=== PATIENT | male | born 1935 | race Two or more races ===

== ENCOUNTER 2021-08-06 09:53 | Inpatient (IN) | payer MEDICARE, OTHER ==
[2021-08-06] VITALS (8 sets, daily range): BP systolic 127–156; BP diastolic 47–65
[~2021-08-06] VITALS: Ht 182.9 cm; Wt 119.4 kg
[2021-08-06 11:03] LABS: Albumin 3.3 g/dL (3.4-5.0); Calcium 8.5 mg/dL (8.5-10.1); Magnesium 2.3 mg/dL (1.6-2.6); Potassium 3.6 mmol/L (3.5-5.1)
[2021-08-06 11:06] LABS: Basophils # (auto) 0 10 ^3/uL (0-0.2); Basophils % (auto) 0.5 % (0.0-2.0); Eosinophils # (auto) 0.1 10 ^3/uL (0-0.8); Eosinophils % (auto) 1.5 % (0.0-7.0); Hematocrit 36.2 % (41.0-53.0); Hemoglobin 11.7 g/dL (13.5-17.5); Lymphocytes # (auto) 1.4 10 ^3/uL (0.4-5.4); Lymphocytes % (auto) 20.4 % (10.0-50.0); Mean Corpuscular Hemoglobin 30.1 pg (28.0-32.0); Mean Corpuscular Hgb Conc. 32.5 g/dL (32.0-36.0); Mean Corpuscular Volume 92.7 fL (80.0-100.0); Monocytes # (auto) 0.5 10 ^3/uL (0-1.3); Monocytes % (auto) 7.1 % (0.0-12.0); Neutrophils % (auto) 70.5 % (37.0-80.0); Nucleated Red Blood Cells % 0.1 %; Red Cell Distribution Width 15.9 % (11.8-14.3); White Blood Cell 7.1 10^3/uL (4.4-10.8)
[2021-08-06 11:08] LABS: Urine Bacteria NONE SEEN /hpf (None Seen); Urine Blood Negative /uL (Negative); Urine Specific Gravity 1.021 (1.001-1.035); Urine WBC 1 /hpf (0 - 3)
[2021-08-06 11:10] LABS: BUN/Creatinine Ratio 7.6
[2021-08-06] MEDS ORDERED: MECLIZINE HCL 25 MG TAB PO ONE (12:30)
[2021-08-06] MEDS ORDERED: SPIRONOLACTONE 25 MG TAB PO ONE (12:30)
[2021-08-06] MEDS ORDERED: hydrALAZINE HCL 20 MG/ML VL IV ONE (12:30)
[2021-08-06] MEDS ORDERED: FUROSEMIDE 40 MG/4 ML VIAL IV ONE (12:30)
[2021-08-06] MEDS ORDERED: LABETALOL HCL 5 MG/ML 4ML SYRINGE IV ONE ×2 (14:16→14:30)
[2021-08-06] MEDS ORDERED: NITROGLYCERIN 0.4 MG SL TAB SL PRN (17:00)
[2021-08-06] MEDS ORDERED: MORPHINE SULFATE INJECTION 2 MG/ML SYRG IV PRN (17:00)
[2021-08-06] MEDS ORDERED: DOCUSATE SOD 100 MG CAP PO PRN (17:45)
[2021-08-06] MEDS ORDERED: ONDANSETRON HCL 4 MG/2 ML VIAL IV PRN (17:45)
[2021-08-06] MEDS ORDERED: ACETAMINOPHEN 325 MG TAB PO PRN (17:45)
[2021-08-06] MEDS ORDERED: THIAMINE HCL 100 MG TAB PO ONE (18:30)
[2021-08-06] MEDS ORDERED: MULTIPLE VITAMIN TAB PO ONE (18:30)
[2021-08-06] MEDS ORDERED: hydrALAZINE HCL 25 MG TAB PO PRN (18:30)
[2021-08-06] MEDS ORDERED: FOLIC ACID 1 MG TAB PO ONE (18:30)
[2021-08-06 18:52] LABS: Alcohol, Urine < 3.0 mg/dL (0-10); Amphetamine Screen, Urine NEGATIVE (NEGATIVE); Barbiturate Scree,Urine NEGATIVE (NEGATIVE); Benzodiazephine Screen, Urine NEGATIVE (NEGATIVE); Cocaine Screen, Urine NEGATIVE (NEGATIVE); Opiate Scree,Urine NEGATIVE (NEGATIVE); Phencyclidine Screen, Urine NEGATIVE (NEGATIVE)
[2021-08-06 18:57] LABS: Cannabinoid Screen, Urine NEGATIVE (NEGATIVE)
[2021-08-06] MEDS: amLODIPine BESYLATE 5 MG TAB PO SCH (19:30)
[2021-08-06] MEDS: ENOXAPARIN SOD 80 MG/0.8ML SYRINGE SC SCH (23:07)
[2021-08-07] VITALS (85 sets, daily range): BP systolic 87–161; BP diastolic 21–129
[2021-08-07 04:50] LABS: Basophils # (auto) 0 10 ^3/uL (0-0.2); Basophils % (auto) 0.6 % (0.0-2.0); Eosinophils # (auto) 0.1 10 ^3/uL (0-0.8); Eosinophils % (auto) 1.1 % (0.0-7.0); Hematocrit 33.5 % (41.0-53.0); Hemoglobin 11.1 g/dL (13.5-17.5); Lymphocytes # (auto) 1.4 10 ^3/uL (0.4-5.4); Lymphocytes % (auto) 20.2 % (10.0-50.0); Mean Corpuscular Hemoglobin 30.6 pg (28.0-32.0); Mean Corpuscular Hgb Conc. 33.3 g/dL (32.0-36.0); Mean Corpuscular Volume 91.7 fL (80.0-100.0); Monocytes # (auto) 0.6 10 ^3/uL (0-1.3); Monocytes % (auto) 8.8 % (0.0-12.0); Neutrophils # (auto) 4.7 10 ^3/uL (1.6-8.6); Neutrophils % (auto) 69.3 % (37.0-80.0); Nucleated Red Blood Cells % 0.1 %; Red Blood Cells 3.65 10^6/uL (4.5-5.90); Red Cell Distribution Width 16.1 % (11.8-14.3); White Blood Cell 6.8 10^3/uL (4.4-10.8)
[2021-08-07 04:59] LABS: Potassium 3.1 mmol/L (3.5-5.1)
[2021-08-07 05:04] LABS: BUN/Creatinine Ratio 11.3; Calcium 8.6 mg/dL (8.5-10.1)
[2021-08-07 05:07] LABS: Bilirubin, Total 1.1 mg/dL (0.2-1.0); Total Protein 6.2 g/dL (6.4-8.2)
[2021-08-07] MEDS: FUROSEMIDE 40 MG/4 ML VIAL IV SCH ×2 (05:31→18:08)
[2021-08-07] MEDS: FOLIC ACID 1 MG TAB PO SCH (09:59)
[2021-08-07] MEDS: THIAMINE HCL 100 MG TAB PO SCH (10:00)
[2021-08-07] MEDS: MULTIPLE VITAMIN TAB PO SCH (10:00)
[2021-08-07] MEDS: amLODIPine BESYLATE 5 MG TAB PO SCH (10:03)
[2021-08-07] MEDS: ENOXAPARIN SOD 80 MG/0.8ML SYRINGE SC SCH (10:03)
[2021-08-07] MEDS: POTASSIUM CHL 10MEQ/50ML 50 ML IV SCH ×4 (12:14→16:12)
[2021-08-07] MEDS ORDERED: HCTZ 25 MG TAB PO ONE (13:30)
[2021-08-07] MEDS: hydrALAZINE HCL 20 MG/ML VL IV PRN (15:39)
[2021-08-08] VITALS (58 sets, daily range): BP systolic 113–168; BP diastolic 5–78
[2021-08-08 04:44] LABS: Basophils # (auto) 0 10 ^3/uL (0-0.2); Basophils % (auto) 0.5 % (0.0-2.0); Eosinophils # (auto) 0.2 10 ^3/uL (0-0.8); Eosinophils % (auto) 2.3 % (0.0-7.0); Hematocrit 37.3 % (41.0-53.0); Hemoglobin 12.3 g/dL (13.5-17.5); Lymphocytes # (auto) 1.4 10 ^3/uL (0.4-5.4); Lymphocytes % (auto) 18.6 % (10.0-50.0); Mean Corpuscular Hemoglobin 30.4 pg (28.0-32.0); Mean Corpuscular Hgb Conc. 32.9 g/dL (32.0-36.0); Mean Corpuscular Volume 92.3 fL (80.0-100.0); Monocytes # (auto) 0.6 10 ^3/uL (0-1.3); Monocytes % (auto) 8.6 % (0.0-12.0); Neutrophils # (auto) 5.2 10 ^3/uL (1.6-8.6); Nucleated Red Blood Cells % 0.1 %; Red Blood Cells 4.05 10^6/uL (4.5-5.90); Red Cell Distribution Width 16.3 % (11.8-14.3); White Blood Cell 7.4 10^3/uL (4.4-10.8)
[2021-08-08 05:08] LABS: BUN/Creatinine Ratio 11.7; Calcium 8.8 mg/dL (8.5-10.1); Potassium 3.3 mmol/L (3.5-5.1)
[2021-08-08] MEDS: FUROSEMIDE 40 MG/4 ML VIAL IV SCH ×2 (06:28→17:31)
[2021-08-08] MEDS ORDERED: POTASSIUM EFFERVESENT TAB 25 MEQ PO ONE (09:30)
[2021-08-08] MEDS: FOLIC ACID 1 MG TAB PO SCH (09:55)
[2021-08-08] MEDS: THIAMINE HCL 100 MG TAB PO SCH (09:55)
[2021-08-08] MEDS: HCTZ 25 MG TAB PO SCH (09:56)
[2021-08-08] MEDS: MULTIPLE VITAMIN TAB PO SCH (09:59)
[2021-08-08] MEDS: ENOXAPARIN SOD 40 MG/0.4 ML SYRINGE SC SCH (10:00)
[2021-08-08] MEDS: amLODIPine BESYLATE 5 MG TAB PO SCH (10:00)
[2021-08-08] MEDS: hydrALAZINE HCL 20 MG/ML VL IV PRN (14:05)
[2021-08-08] MEDS: hydrALAZINE HCL 10 MG TAB PO SCH (21:20)
[2021-08-09 05:00] VITALS: BP 133/70
[2021-08-09] MEDS: FUROSEMIDE 40 MG/4 ML VIAL IV SCH ×2 (06:02→18:45)
[2021-08-09] MEDS: hydrALAZINE HCL 10 MG TAB PO SCH ×3 (06:03→21:35)
[2021-08-09 07:05] LABS: Basophils # (auto) 0 10 ^3/uL (0-0.2); Basophils % (auto) 0.4 % (0.0-2.0); Eosinophils # (auto) 0.1 10 ^3/uL (0-0.8); Eosinophils % (auto) 1.5 % (0.0-7.0); Hemoglobin 12.1 g/dL (13.5-17.5); Lymphocytes # (auto) 1.3 10 ^3/uL (0.4-5.4); Lymphocytes % (auto) 18.2 % (10.0-50.0); Mean Corpuscular Hemoglobin 30.3 pg (28.0-32.0); Mean Corpuscular Hgb Conc. 33.4 g/dL (32.0-36.0); Mean Corpuscular Volume 90.5 fL (80.0-100.0); Monocytes # (auto) 0.8 10 ^3/uL (0-1.3); Monocytes % (auto) 11.1 % (0.0-12.0); Neutrophils # (auto) 4.9 10 ^3/uL (1.6-8.6); Neutrophils % (auto) 68.8 % (37.0-80.0); Red Blood Cells 3.98 10^6/uL (4.5-5.90); Red Cell Distribution Width 16.3 % (11.8-14.3); White Blood Cell 7.2 10^3/uL (4.4-10.8)
[2021-08-09 07:10] LABS: Calcium 9.1 mg/dL (8.5-10.1); Potassium 3.4 mmol/L (3.5-5.1)
[2021-08-09 07:13] LABS: BUN/Creatinine Ratio 11.5
[2021-08-09] MEDS: FOLIC ACID 1 MG TAB PO SCH (08:55)
[2021-08-09] MEDS: HCTZ 25 MG TAB PO SCH (08:56)
[2021-08-09] MEDS: MULTIPLE VITAMIN TAB PO SCH (08:56)
[2021-08-09] MEDS: THIAMINE HCL 100 MG TAB PO SCH (08:56)
[2021-08-09] MEDS: ENOXAPARIN SOD 40 MG/0.4 ML SYRINGE SC SCH (08:57)
[2021-08-09] MEDS: amLODIPine BESYLATE 5 MG TAB PO SCH (08:57)
[2021-08-09 09:00] VITALS: BP 141/51
[2021-08-09 13:00] VITALS: BP 120/53
[2021-08-09] MEDS ORDERED: METO25TA93 PO (13:05)
[2021-08-09] MEDS ORDERED: APIX5TAB PO (13:05)
[2021-08-09] MEDS ORDERED: FURO20TA3 PO (13:05)
[2021-08-09] MEDS ORDERED: TAMS0.4C36 PO (13:05)
[2021-08-09] MEDS ORDERED: ENAL2.5T7 PO (13:05)
[2021-08-09] MEDS ORDERED: AML5T PO (13:09)
[2021-08-09 16:56] VITALS: BP 148/67
[2021-08-09 22:00] VITALS: BP 133/54
[2021-08-10 05:00] VITALS: BP 105/60
[2021-08-10] MEDS: FUROSEMIDE 40 MG/4 ML VIAL IV SCH (05:34)
[2021-08-10] MEDS: hydrALAZINE HCL 10 MG TAB PO SCH (05:35)
[2021-08-10 09:00] VITALS: BP 131/45
[2021-08-10] MEDS: MULTIPLE VITAMIN TAB PO SCH (10:05)
[2021-08-10] MEDS: THIAMINE HCL 100 MG TAB PO SCH (10:05)
[2021-08-10] MEDS: FOLIC ACID 1 MG TAB PO SCH (10:05)
[2021-08-10] MEDS: ENOXAPARIN SOD 40 MG/0.4 ML SYRINGE SC SCH (10:06)
[2021-08-10] MEDS: amLODIPine BESYLATE 5 MG TAB PO SCH (10:08)
[2021-08-10] MEDS: HCTZ 25 MG TAB PO SCH (10:08)
[2021-08-10 10:30] VITALS: BP_SYST 133
[2021-08-10] MEDS ORDERED: hydrALAZINE HCL 10 MG TAB PO SCH (14:00)
== END 2021-08-10 13:20 | disposition home or self-care (01) | DRG 304 ==
LOC: ER 09:53 → TELE 16:53 → ICU WEST 21:54 → TELE-WESTW 08-08 16:48
PROVIDERS: ADMIT Internal Medicine; ATTEND Internal Medicine Pulmonary Disease
PROC: 05HB33Z Insertion of Infusion Device into Right Basilic Vein, Percutaneous Approach (ICD-10-PCS; principal; 2021-08-08)
PROC: B54MZZA Ultrasonography of Right Upper Extremity Veins, Guidance (ICD-10-PCS; 2021-08-08)
DX: I16.1 Hypertensive emergency (principal); I50.33 Acute on chronic diastolic (congestive) heart failure; I48.20 Chronic atrial fibrillation, unspecified; E44.1 Mild protein-calorie malnutrition; R09.89 Other specified symptoms and signs involving the circulatory and respiratory systems; D63.8 Anemia in other chronic diseases classified elsewhere; E87.6 Hypokalemia; I27.20 Pulmonary hypertension, unspecified; I11.0 Hypertensive heart disease with heart failure; I49.5 Sick sinus syndrome; Z20.822 Contact with and (suspected) exposure to COVID-19; Z85.46 Personal history of malignant neoplasm of prostate; Z79.01 Long term (current) use of anticoagulants; Z86.73 Personal history of transient ischemic attack (TIA), and cerebral infarction without residual deficits; Z68.35 Body mass index [BMI] 35.0-35.9, adult
CPT/HCPCS: 36415; 70450; 71045; 72192; 80048; 80053; 80307; 81001; 82962; 83735; 83880; 84132; 84443; 84484; 85025; 87081; 93005; 93306; 96365; 96375; 97163; 99291; G0378; J3490

== ENCOUNTER 2021-08-18 01:28 | Inpatient (IN) | payer MEDICARE ==
[~2021-08-18] VITALS: Ht 193 cm; Wt 111.8 kg
[~2021-08-18 01:28] MED LIST: AML5T PO; APIX5TAB PO; ENAL2.5T7 PO; FURO20TA3 PO; METO25TA93 PO; TAMS0.4C36 PO
[2021-08-18 02:37] LABS: Basophils # (auto) 0 10 ^3/uL (0-0.2); Basophils % (auto) 0.4 % (0.0-2.0); Eosinophils # (auto) 0 10 ^3/uL (0-0.8); Eosinophils % (auto) 0.3 % (0.0-7.0); Hematocrit 37.2 % (41.0-53.0); Hemoglobin 12.2 g/dL (13.5-17.5); Lymphocytes # (auto) 0.8 10 ^3/uL (0.4-5.4); Mean Corpuscular Hemoglobin 29.7 pg (28.0-32.0); Mean Corpuscular Hgb Conc. 32.9 g/dL (32.0-36.0); Mean Corpuscular Volume 90.5 fL (80.0-100.0); Monocytes # (auto) 0.3 10 ^3/uL (0-1.3); Monocytes % (auto) 8.8 % (0.0-12.0); Neutrophils # (auto) 2.5 10 ^3/uL (1.6-8.6); Neutrophils % (auto) 69.5 % (37.0-80.0); Red Blood Cells 4.12 10^6/uL (4.5-5.90); Red Cell Distribution Width 15.7 % (11.8-14.3); White Blood Cell 3.6 10^3/uL (4.4-10.8)
[2021-08-18 02:53] LABS: Albumin 2.9 g/dL (3.4-5.0); Calcium 8.2 mg/dL (8.5-10.1); Magnesium 2.3 mg/dL (1.6-2.6); Potassium 3.7 mmol/L (3.5-5.1)
[2021-08-18 02:55] LABS: BUN/Creatinine Ratio 12.8
[2021-08-18 02:59] LABS: INR 1.22 (0.9-1.15); Partial Thromboplastin Time 39.7 sec (23.6-33.0)
[2021-08-18 03:00] LABS: Bilirubin, Total 0.7 mg/dL (0.2-1.0); Total Protein 6.5 g/dL (6.4-8.2)
[2021-08-18] MEDS ORDERED: ACETAMINOPHEN 325 MG TAB PO PRN (09:15)
[2021-08-18] MEDS ORDERED: NITROGLYCERIN 0.4 MG SL TAB SL PRN (09:15)
[2021-08-18] MEDS ORDERED: TEMAZEPAM 15 MG CAP PO PRN (09:15)
[2021-08-18] MEDS ORDERED: MORPHINE SULFATE INJECTION 2 MG/ML SYRG IV PRN (09:15)
[2021-08-18] MEDS ORDERED: METOCLOPRAMIDE HCL 5MG/ml INJ 2ml VIAL IV PRN ×2 (09:15→09:30)
[2021-08-18] MEDS ORDERED: ALUM & MAG HYDROX-SIMETH LIQ(MAALOX) 30 ML PO PRN (09:15)
[2021-08-18] MEDS ORDERED: FUROSEMIDE 20 MG/2 ML VIAL IV ONE (09:30)
[2021-08-18] MEDS: DOXYCYCLINE 100 MG TAB/CAP PO SCH ×2 (09:42→21:31)
[2021-08-18] MEDS ORDERED: GLUCAGON HYDROCHLORIDE (RDNA) 1 MG VIAL IV ONE (12:00)
[2021-08-18] MEDS ORDERED: ISOSORBIDE MONONITRATE ER 60 MG TAB PO ONE (12:00)
[2021-08-18] MEDS ORDERED: hydrALAZINE HCL 20 MG/ML VL IV PRN (12:00)
[2021-08-18 13:45] VITALS: BP 134/65
[2021-08-18 13:59] VITALS: BP 104/68
[2021-08-18] MEDS: SODIUM CHLOR 0.9% PF (SALINE LOCK) 10ML VIAL/SYR IV SCH ×2 (14:00→21:20)
[2021-08-18 14:21] VITALS: BP 104/68
[2021-08-18] MEDS: IPRATROPIUM BROM 0.5 MG/2.5ML INH SOL NEB SCH ×2 (14:22→22:20)
[2021-08-18] MEDS: ALBUTEROL SULF 2.5 MG/0.5ML(0.5%) NEB SOLN NEB SCH ×2 (14:22→22:20)
[2021-08-18 16:05] VITALS: BP 157/49
[2021-08-18 22:00] VITALS: BP 110/62
[2021-08-18] MEDS: HYDROcodone-ACET 5/325MG TAB PO PRN (22:11)
[2021-08-19 05:00] VITALS: BP 143/68
[2021-08-19] MEDS: SODIUM CHLOR 0.9% PF (SALINE LOCK) 10ML VIAL/SYR IV SCH ×3 (05:55→22:19)
[2021-08-19 06:39] LABS: Calcium 8.1 mg/dL (8.5-10.1); Potassium 3.7 mmol/L (3.5-5.1)
[2021-08-19 06:42] LABS: BUN/Creatinine Ratio 18.7; Magnesium 2.5 mg/dL (1.6-2.6)
[2021-08-19] MEDS: ALBUTEROL SULF 2.5 MG/0.5ML(0.5%) NEB SOLN NEB SCH ×3 (06:49→22:00)
[2021-08-19] MEDS: IPRATROPIUM BROM 0.5 MG/2.5ML INH SOL NEB SCH ×3 (06:49→22:00)
[2021-08-19 08:57] LABS: Urine Bacteria NONE SEEN /hpf (None Seen); Urine Blood Negative /uL (Negative); Urine Hyaline Cast MANY /lpf (0 - 2); Urine Mucus FEW (None Seen); Urine Specific Gravity 1.025 (1.001-1.035); Urine WBC 2 /hpf (0 - 3)
[2021-08-19 09:00] VITALS: BP 126/87
[2021-08-19 09:34] LABS: Amphetamine Screen, Urine NEGATIVE (NEGATIVE); Barbiturate Scree,Urine NEGATIVE (NEGATIVE); Benzodiazephine Screen, Urine NEGATIVE (NEGATIVE); Cannabinoid Screen, Urine NEGATIVE (NEGATIVE); Cocaine Screen, Urine NEGATIVE (NEGATIVE); Opiate Scree,Urine NEGATIVE (NEGATIVE); Phencyclidine Screen, Urine NEGATIVE (NEGATIVE)
[2021-08-19] MEDS ORDERED: FUROSEMIDE 20 MG/2 ML VIAL IV ONE (10:45)
[2021-08-19] MEDS: ISOSORBIDE MONONITRATE ER 60 MG TAB PO SCH (10:51)
[2021-08-19] MEDS: HYDROcodone-ACET 5/325MG TAB PO PRN ×2 (10:51→18:26)
[2021-08-19] MEDS: DOXYCYCLINE 100 MG TAB/CAP PO SCH ×2 (10:51→22:20)
[2021-08-19 13:00] VITALS: BP 134/63
[2021-08-19 16:58] VITALS: BP 127/56
[2021-08-19 22:00] VITALS: BP 124/73
[2021-08-20 05:00] VITALS: BP 130/57
[2021-08-20] MEDS: SODIUM CHLOR 0.9% PF (SALINE LOCK) 10ML VIAL/SYR IV SCH ×3 (05:43→22:29)
[2021-08-20] MEDS: IPRATROPIUM BROM 0.5 MG/2.5ML INH SOL NEB SCH ×3 (06:58→23:20)
[2021-08-20] MEDS: ALBUTEROL SULF 2.5 MG/0.5ML(0.5%) NEB SOLN NEB SCH ×3 (06:58→23:20)
[2021-08-20 08:39] VITALS: BP 135/58
[2021-08-20] MEDS: DOXYCYCLINE 100 MG TAB/CAP PO SCH ×2 (10:49→22:30)
[2021-08-20] MEDS: ISOSORBIDE MONONITRATE ER 60 MG TAB PO SCH (10:50)
[2021-08-20 12:38] VITALS: BP 125/69
[2021-08-20 16:38] VITALS: BP 128/72
[2021-08-20 22:00] VITALS: BP 140/68
[2021-08-21] VITALS (8 sets, daily range): BP systolic 123–149; BP diastolic 49–74
[2021-08-21] MEDS: SODIUM CHLOR 0.9% PF (SALINE LOCK) 10ML VIAL/SYR IV SCH ×3 (05:10→22:00)
[2021-08-21] MEDS: IPRATROPIUM BROM 0.5 MG/2.5ML INH SOL NEB SCH ×3 (06:40→21:26)
[2021-08-21] MEDS: ALBUTEROL SULF 2.5 MG/0.5ML(0.5%) NEB SOLN NEB SCH ×3 (06:40→21:26)
[2021-08-21] MEDS: DOXYCYCLINE 100 MG TAB/CAP PO SCH ×2 (10:00→22:31)
[2021-08-21] MEDS: ISOSORBIDE MONONITRATE ER 60 MG TAB PO SCH (10:00)
[2021-08-21] MEDS ORDERED: LIDOCAINE 2%HCL (LOCAL ANESTH.) INJ 10ml MDV ONE (12:17)
[2021-08-21] MEDS ORDERED: fentaNYL CITRATE 100 MCG/2 ML VL ONE (12:20)
[2021-08-21] MEDS ORDERED: VANCOMYCIN HCL 1000 MG VL ONE (12:20)
[2021-08-21] MEDS ORDERED: MIDAZOLAM HCL 2MG/2ML 2ml VIAL (1mg/ml) ONE (12:21)
[2021-08-21] MEDS ORDERED: VANCOMYCIN 1GM/250ML 250 ML IV ONE (12:21)
[2021-08-21] MEDS: HYDROmorphone HCL 2 MG/ML VL IV PRN (21:05)
[2021-08-22 05:00] VITALS: BP 137/68
[2021-08-22] MEDS: SODIUM CHLOR 0.9% PF (SALINE LOCK) 10ML VIAL/SYR IV SCH ×3 (06:00→21:43)
[2021-08-22] MEDS: ALBUTEROL SULF 2.5 MG/0.5ML(0.5%) NEB SOLN NEB SCH ×3 (06:08→22:43)
[2021-08-22] MEDS: IPRATROPIUM BROM 0.5 MG/2.5ML INH SOL NEB SCH ×3 (06:08→22:43)
[2021-08-22 08:42] VITALS: BP 148/77
[2021-08-22] MEDS ORDERED: FUROSEMIDE 20 MG/2 ML VIAL IV SCH (10:00)
[2021-08-22] MEDS: DOXYCYCLINE 100 MG TAB/CAP PO SCH ×2 (10:00→21:43)
[2021-08-22] MEDS: ISOSORBIDE MONONITRATE ER 60 MG TAB PO SCH (10:00)
[2021-08-22] MEDS ORDERED: ATOR-47 PO (10:15)
[2021-08-22 13:12] VITALS: BP 145/73
[2021-08-22 16:58] VITALS: BP 123/58
[2021-08-22 20:00] VITALS: BP 133/66
[2021-08-22] MEDS: FUROSEMIDE 20 MG/2 ML VIAL IV SCH (21:43)
[2021-08-22 22:00] VITALS: BP 133/66
[2021-08-23 05:00] VITALS: BP 144/63
[2021-08-23] MEDS: SODIUM CHLOR 0.9% PF (SALINE LOCK) 10ML VIAL/SYR IV SCH ×3 (06:02→22:30)
[2021-08-23] MEDS: HYDROmorphone HCL 2 MG/ML VL IV PRN (06:02)
[2021-08-23] MEDS: IPRATROPIUM BROM 0.5 MG/2.5ML INH SOL NEB SCH ×3 (06:03→23:00)
[2021-08-23] MEDS: ALBUTEROL SULF 2.5 MG/0.5ML(0.5%) NEB SOLN NEB SCH ×3 (06:03→23:00)
[2021-08-23 08:30] LABS: Basophils # (auto) 0 10 ^3/uL (0-0.2); Basophils % (auto) 0.2 % (0.0-2.0); Eosinophils # (auto) 0.1 10 ^3/uL (0-0.8); Eosinophils % (auto) 0.9 % (0.0-7.0); Hemoglobin 12.6 g/dL (13.5-17.5); Lymphocytes # (auto) 0.8 10 ^3/uL (0.4-5.4); Lymphocytes % (auto) 11.7 % (10.0-50.0); Mean Corpuscular Hemoglobin 29.8 pg (28.0-32.0); Mean Corpuscular Hgb Conc. 33.1 g/dL (32.0-36.0); Monocytes # (auto) 0.7 10 ^3/uL (0-1.3); Monocytes % (auto) 9.9 % (0.0-12.0); Neutrophils # (auto) 5.5 10 ^3/uL (1.6-8.6); Neutrophils % (auto) 77.3 % (37.0-80.0); Nucleated Red Blood Cells % 0.2 %; Red Blood Cells 4.23 10^6/uL (4.5-5.90); Red Cell Distribution Width 15.9 % (11.8-14.3); White Blood Cell 7.1 10^3/uL (4.4-10.8)
[2021-08-23 08:38] VITALS: BP 147/63
[2021-08-23 08:48] LABS: BUN/Creatinine Ratio 17.1; Calcium 8.8 mg/dL (8.5-10.1); Magnesium 2.5 mg/dL (1.6-2.6); Potassium 3.9 mmol/L (3.5-5.1)
[2021-08-23] MEDS: FUROSEMIDE 20 MG/2 ML VIAL IV SCH ×2 (10:00→22:31)
[2021-08-23] MEDS: ISOSORBIDE MONONITRATE ER 60 MG TAB PO SCH (10:00)
[2021-08-23] MEDS: DOXYCYCLINE 100 MG TAB/CAP PO SCH ×2 (10:00→22:31)
[2021-08-23 12:30] VITALS: BP 127/60
[2021-08-23 16:42] VITALS: BP 141/71
[2021-08-23 22:00] VITALS: BP 127/63
[2021-08-24 05:00] VITALS: BP 128/62
[2021-08-24] MEDS: SODIUM CHLOR 0.9% PF (SALINE LOCK) 10ML VIAL/SYR IV SCH ×3 (06:01→22:38)
[2021-08-24] MEDS: ALBUTEROL SULF 2.5 MG/0.5ML(0.5%) NEB SOLN NEB SCH ×3 (07:00→23:56)
[2021-08-24] MEDS: IPRATROPIUM BROM 0.5 MG/2.5ML INH SOL NEB SCH ×3 (07:00→23:56)
[2021-08-24] MEDS: HYDROcodone-ACET 5/325MG TAB PO PRN (08:19)
[2021-08-24 09:00] VITALS: BP 127/76
[2021-08-24] MEDS: FUROSEMIDE 20 MG/2 ML VIAL IV SCH ×2 (10:00→22:38)
[2021-08-24] MEDS: ISOSORBIDE MONONITRATE ER 60 MG TAB PO SCH (10:00)
[2021-08-24] MEDS: DOXYCYCLINE 100 MG TAB/CAP PO SCH ×2 (10:00→22:38)
[2021-08-24 11:00] VITALS: BP 127/76
[2021-08-24 13:00] VITALS: BP 141/84
[2021-08-24 17:00] VITALS: BP 146/73
[2021-08-24 21:30] VITALS: BP 147/80
[2021-08-25 05:00] VITALS: BP 145/79
[2021-08-25] MEDS: IPRATROPIUM BROM 0.5 MG/2.5ML INH SOL NEB SCH ×3 (07:24→13:40)
[2021-08-25] MEDS: ALBUTEROL SULF 2.5 MG/0.5ML(0.5%) NEB SOLN NEB SCH ×3 (07:24→13:40)
[2021-08-25 09:00] VITALS: BP 143/70
[2021-08-25] MEDS: DOXYCYCLINE 100 MG TAB/CAP PO SCH (09:23)
[2021-08-25] MEDS: FUROSEMIDE 20 MG/2 ML VIAL IV SCH (09:23)
[2021-08-25] MEDS: ISOSORBIDE MONONITRATE ER 60 MG TAB PO SCH (09:24)
[2021-08-25 13:00] VITALS: BP 131/67
[2021-08-25] MEDS: SODIUM CHLOR 0.9% PF (SALINE LOCK) 10ML VIAL/SYR IV SCH (14:00)
[2021-08-25 17:00] VITALS: BP 130/64
[2021-08-25 17:21] VITALS: BP 130/64
== END 2021-08-25 20:39 | DRG 242 ==
LOC: EDBD 01:28 → EDUNIT# 01:28 → ER 01:30 → TELE 09:10 → TELE-WESTW 13:49 → TELE-EAST 17:25
PROVIDERS: ADMIT Internal Medicine; ATTEND Internal Medicine
PROC: 0JH604Z Insertion of Pacemaker, Single Chamber into Chest Subcutaneous Tissue and Fascia, Open Approach (ICD-10-PCS; principal; 2021-08-21)
PROC: 02HK3JZ Insertion of Pacemaker Lead into Right Ventricle, Percutaneous Approach (ICD-10-PCS; 2021-08-21)
PROC: B5171ZZ Fluoroscopy of Left Subclavian Vein using Low Osmolar Contrast (ICD-10-PCS; 2021-08-21)
DX: I49.5 Sick sinus syndrome (principal); U07.1 COVID-19; G93.41 Metabolic encephalopathy; I50.33 Acute on chronic diastolic (congestive) heart failure; N17.9 Acute kidney failure, unspecified; E44.1 Mild protein-calorie malnutrition; D68.9 Coagulation defect, unspecified; I13.0 Hypertensive heart and chronic kidney disease with heart failure and stage 1 through stage 4 chronic kidney disease, or unspecified chronic kidney disease; I48.20 Chronic atrial fibrillation, unspecified; F03.90 Unspecified dementia, unspecified severity, without behavioral disturbance, psychotic disturbance, mood disturbance, and anxiety; I27.20 Pulmonary hypertension, unspecified; E66.9 Obesity, unspecified; N18.9 Chronic kidney disease, unspecified; D63.8 Anemia in other chronic diseases classified elsewhere; Z79.01 Long term (current) use of anticoagulants; Z85.46 Personal history of malignant neoplasm of prostate; Z86.73 Personal history of transient ischemic attack (TIA), and cerebral infarction without residual deficits; Z68.29 Body mass index [BMI] 29.0-29.9, adult
CPT/HCPCS: 33207; 36415; 70450; 71045; 71250; 75820; 80048; 80053; 80307; 81001; 83605; 83735; 83880; 84439; 84484; 85025; 85610; 85730; 87040; 87081; 87086; 93005; 94640; 96374; 97110; 97116; 97163; 97530; 99152; 99153; G0378; J2001; J2250

== ENCOUNTER 2021-10-03 11:44 | Inpatient (IN) | payer MEDICARE ==
[~2021-10-03] VITALS: Ht 182.9 cm; Wt 108.1 kg
[~2021-10-03 11:44] MED LIST changes: -AML5T PO; +ATOR-47 PO; -ENAL2.5T7 PO; -FURO20TA3 PO; -METO25TA93 PO; -TAMS0.4C36 PO
[2021-10-03 13:25] LABS: Basophils # (auto) 0 10 ^3/uL (0-0.2); Basophils % (auto) 0.4 % (0.0-2.0); Eosinophils # (auto) 0.1 10 ^3/uL (0-0.8); Eosinophils % (auto) 1.3 % (0.0-7.0); Hematocrit 37.6 % (41.0-53.0); Hemoglobin 12.5 g/dL (13.5-17.5); Lymphocytes # (auto) 0.8 10 ^3/uL (0.4-5.4); Lymphocytes % (auto) 10.1 % (10.0-50.0); Mean Corpuscular Hemoglobin 31.8 pg (28.0-32.0); Mean Corpuscular Hgb Conc. 33.2 g/dL (32.0-36.0); Mean Corpuscular Volume 95.8 fL (80.0-100.0); Monocytes # (auto) 0.5 10 ^3/uL (0-1.3); Monocytes % (auto) 6.1 % (0.0-12.0); Neutrophils # (auto) 6.6 10 ^3/uL (1.6-8.6); Neutrophils % (auto) 82.1 % (37.0-80.0); Nucleated Red Blood Cells % 0.1 %; Red Blood Cells 3.93 10^6/uL (4.5-5.90); Red Cell Distribution Width 16.1 % (11.8-14.3)
[2021-10-03 13:41] LABS: INR 1.08 (0.9-1.15); Partial Thromboplastin Time 28.1 sec (23.6-33.0)
[2021-10-03] MEDS ORDERED: ACETAMINOPHEN 325 MG TAB PO ONE (13:45)
[2021-10-03] MEDS ORDERED: ASPirin 81 mg TAB PO ONE (13:45)
[2021-10-03 13:47] LABS: Albumin 2.9 g/dL (3.4-5.0); Calcium 9.1 mg/dL (8.5-10.1); Potassium 3.7 mmol/L (3.5-5.1)
[2021-10-03 13:51] LABS: BUN/Creatinine Ratio 6.1; Magnesium 2.1 mg/dL (1.6-2.6)
[2021-10-03 13:53] LABS: Bilirubin, Total 0.6 mg/dL (0.2-1.0); Total Protein 6.2 g/dL (6.4-8.2)
[2021-10-03] MEDS ORDERED: ENOXAPARIN SOD 40 MG/0.4 ML SYRINGE SC ONE (15:00)
[2021-10-03] MEDS ORDERED: MORPHINE SULFATE INJECTION 2 MG/ML SYRG IV PRN ×2 (15:00→16:30)
[2021-10-03] MEDS ORDERED: FUROSEMIDE 20 MG/2 ML VIAL IV ONE (15:00)
[2021-10-03] MEDS ORDERED: NITROGLYCERIN 0.4 MG SL TAB SL PRN ×2 (15:00→16:30)
[2021-10-03 15:21] LABS: Urine Bacteria NONE SEEN /hpf (None Seen); Urine Blood 3+ /uL (Negative); Urine Hyaline Cast FEW /lpf (0 - 2); Urine Mucus FEW (None Seen); Urine WBC 271 /hpf (0 - 3)
[2021-10-03 17:21] VITALS: BP 120/74
[2021-10-03] MEDS ORDERED: FUROSEMIDE 20 MG/2 ML VIAL IV SCH (18:00)
[2021-10-03] MEDS ORDERED: LORazepam 0.5 MG TAB PO PRN (19:00)
[2021-10-03] MEDS ORDERED: hydrALAZINE HCL 20 MG/ML VL IV PRN (19:00)
[2021-10-03] MEDS ORDERED: METOPROLOL TARTRATE 1MG/1ML-5ML VIAL IV PRN (19:00)
[2021-10-03] MEDS ORDERED: ONDANSETRON HCL 4 MG/2 ML VIAL IV PRN (19:00)
[2021-10-03] MEDS ORDERED: ACETAMINOPHEN 325 MG TAB PO PRN (19:00)
[2021-10-03] MEDS ORDERED: LORazepam 2MG/ML-1ML VIAL IV PRN (20:45)
[2021-10-03 21:37] LABS: Folate (Folic Acid) 6.42 ng/mL (5.38-24)
[2021-10-03 21:59] VITALS: BP 118/50
[2021-10-03] MEDS: APIXABAN 5 MG TAB PO SCH (22:00)
[2021-10-03] MEDS: METOPROLOL TARTRATE 25 MG TAB PO SCH (22:16)
[2021-10-03] MEDS: ATORVASTATIN 20 MG TAB PO SCH (22:16)
[2021-10-03] MEDS: ISOSORBIDE MONONITRATE 20 MG TAB PO SCH (22:16)
[2021-10-03] MEDS: MORPHINE SULFATE INJECTION 2 MG/ML SYRG IV PRN (22:18)
[2021-10-04] VITALS (8 sets, daily range): BP systolic 114–164; BP diastolic 63–74
[2021-10-04] MEDS ORDERED: FUROSEMIDE 20 MG/2 ML VIAL IV SCH (06:00)
[2021-10-04 06:31] LABS: Basophils # (auto) 0 10 ^3/uL (0-0.2); Basophils % (auto) 0.7 % (0.0-2.0); Eosinophils # (auto) 0.2 10 ^3/uL (0-0.8); Eosinophils % (auto) 2.4 % (0.0-7.0); Hematocrit 33.6 % (41.0-53.0); Hemoglobin 11.3 g/dL (13.5-17.5); Lymphocytes # (auto) 1.7 10 ^3/uL (0.4-5.4); Lymphocytes % (auto) 26.1 % (10.0-50.0); Mean Corpuscular Hemoglobin 31.6 pg (28.0-32.0); Mean Corpuscular Hgb Conc. 33.6 g/dL (32.0-36.0); Mean Corpuscular Volume 93.9 fL (80.0-100.0); Monocytes # (auto) 0.5 10 ^3/uL (0-1.3); Monocytes % (auto) 7.3 % (0.0-12.0); Neutrophils # (auto) 4.2 10 ^3/uL (1.6-8.6); Neutrophils % (auto) 63.5 % (37.0-80.0); Nucleated Red Blood Cells % 0.1 %; Red Blood Cells 3.58 10^6/uL (4.5-5.90); Red Cell Distribution Width 16.3 % (11.8-14.3); White Blood Cell 6.7 10^3/uL (4.4-10.8)
[2021-10-04 06:35] LABS: INR 1.09 (0.9-1.15); Partial Thromboplastin Time 30.8 sec (23.6-33.0)
[2021-10-04 06:49] LABS: Magnesium 2.2 mg/dL (1.6-2.6); Potassium 3.8 mmol/L (3.5-5.1)
[2021-10-04 07:03] LABS: Albumin 2.5 g/dL (3.4-5.0); BUN/Creatinine Ratio 9.4; Bilirubin, Total 0.6 mg/dL (0.2-1.0); Calcium 9.1 mg/dL (8.5-10.1); Phosphorus 2.8 mg/dL (2.5-4.90); Total Protein 6.3 g/dL (6.4-8.2)
[2021-10-04] MEDS: APIXABAN 5 MG TAB PO SCH ×2 (10:00→22:00)
[2021-10-04] MEDS: ISOSORBIDE MONONITRATE 20 MG TAB PO SCH (10:00)
[2021-10-04] MEDS: METOPROLOL TARTRATE 25 MG TAB PO SCH ×2 (10:00→22:33)
[2021-10-04] MEDS: levoFLOXacin 500MG 100 ML IV SCH (10:52)
[2021-10-04] MEDS: FAMOTIDINE (10MG/ML) 2ML VL IV SCH (10:52)
[2021-10-04] MEDS: MORPHINE SULFATE INJECTION 2 MG/ML SYRG IV PRN (10:53)
[2021-10-04] MEDS ORDERED: IODIXANOL 320MG/ML 100ML BTL IV ONE ×2 (20:19→20:27)
[2021-10-04] MEDS ORDERED: ANGIOMAX 250 MG VIAL IV ONE (20:25)
[2021-10-04] MEDS ORDERED: SODIUM CHL 0.9% 0 ML ONE (20:26)
[2021-10-04] MEDS ORDERED: fentaNYL CITRATE 100 MCG/2 ML VL ONE (20:26)
[2021-10-04] MEDS ORDERED: VERAPAMIL 2.5MG/ML INJ 2ML VIAL IV ONE (20:26)
[2021-10-04] MEDS ORDERED: MIDAZOLAM HCL 2MG/2ML 2ml VIAL (1mg/ml) ONE (20:26)
[2021-10-04] MEDS ORDERED: HEPARIN SODIUM (PORCINE) 5000 UNITS/ML 1ML VIAL ONE (20:28)
[2021-10-04] MEDS ORDERED: LIDOCAINE 2%HCL (LOCAL ANESTH.) INJ 10ml MDV ONE (20:45)
[2021-10-04] MEDS: ATORVASTATIN 20 MG TAB PO SCH (22:31)
[2021-10-05 00:33] VITALS: BP 143/68
[2021-10-05 01:40] VITALS: BP 133/71
[2021-10-05 05:00] VITALS: BP 106/67
[2021-10-05 06:25] LABS: Potassium 3.9 mmol/L (3.5-5.1)
[2021-10-05 06:29] LABS: BUN/Creatinine Ratio 9.6; Magnesium 2.2 mg/dL (1.6-2.6); Phosphorus 2.8 mg/dL (2.5-4.90)
[2021-10-05] MEDS: FAMOTIDINE (10MG/ML) 2ML VL IV SCH (11:22)
[2021-10-05] MEDS: levoFLOXacin 500MG 100 ML IV SCH (11:22)
[2021-10-05] MEDS: APIXABAN 5 MG TAB PO SCH ×2 (11:23→21:39)
[2021-10-05] MEDS: METOPROLOL TARTRATE 25 MG TAB PO SCH ×2 (12:00→21:41)
[2021-10-05 13:00] VITALS: BP 134/70
[2021-10-05 16:42] VITALS: BP 136/59
[2021-10-05] MEDS: ATORVASTATIN 20 MG TAB PO SCH (21:39)
[2021-10-05] MEDS: DOCUSATE SOD 100 MG CAP PO PRN (21:41)
[2021-10-05] MEDS: HYDROcodone-ACET 5/325MG TAB PO PRN (21:41)
[2021-10-05 22:00] VITALS: BP 135/62
[2021-10-06 05:00] VITALS: BP 149/77
[2021-10-06 09:00] VITALS: BP 152/76
[2021-10-06] MEDS: levoFLOXacin 500MG 100 ML IV SCH (09:53)
[2021-10-06] MEDS: APIXABAN 5 MG TAB PO SCH ×2 (09:53→22:50)
[2021-10-06] MEDS: FAMOTIDINE (10MG/ML) 2ML VL IV SCH (09:53)
[2021-10-06] MEDS: METOPROLOL TARTRATE 25 MG TAB PO SCH ×2 (09:54→22:50)
[2021-10-06 13:00] VITALS: BP 121/68
[2021-10-06 17:00] VITALS: BP 126/67
[2021-10-06 19:45] VITALS: BP 126/67
[2021-10-06 22:00] VITALS: BP 114/69
[2021-10-06] MEDS: ATORVASTATIN 20 MG TAB PO SCH (22:50)
[2021-10-07] VITALS (7 sets, daily range): BP systolic 110–157; BP diastolic 66–82
[2021-10-07] MEDS: DOCUSATE SOD 100 MG CAP PO PRN ×2 (04:17→21:28)
[2021-10-07] MEDS: MORPHINE SULFATE INJECTION 2 MG/ML SYRG IV PRN (04:17)
[2021-10-07] MEDS: levoFLOXacin 500MG 100 ML IV SCH (10:02)
[2021-10-07] MEDS: APIXABAN 5 MG TAB PO SCH ×2 (10:03→21:27)
[2021-10-07] MEDS: FAMOTIDINE (10MG/ML) 2ML VL IV SCH (10:03)
[2021-10-07] MEDS: METOPROLOL TARTRATE 25 MG TAB PO SCH ×2 (10:06→21:28)
[2021-10-07] MEDS: ATORVASTATIN 20 MG TAB PO SCH (21:27)
[2021-10-08 05:00] VITALS: BP 143/73
[2021-10-08 08:30] VITALS: BP 152/75
[2021-10-08] MEDS: APIXABAN 5 MG TAB PO SCH ×2 (09:59→21:44)
[2021-10-08] MEDS: METOPROLOL TARTRATE 25 MG TAB PO SCH ×2 (10:00→21:44)
[2021-10-08] MEDS: FAMOTIDINE (10MG/ML) 2ML VL IV SCH (10:00)
[2021-10-08] MEDS: levoFLOXacin 500MG 100 ML IV SCH (10:01)
[2021-10-08 12:30] VITALS: BP 123/66
[2021-10-08 17:00] VITALS: BP 131/70
[2021-10-08 20:00] VITALS: BP 150/73
[2021-10-08] MEDS: ATORVASTATIN 20 MG TAB PO SCH (21:44)
[2021-10-08 22:00] VITALS: BP 150/73
[2021-10-08] MEDS: HYDROcodone-ACET 5/325MG TAB PO PRN (22:32)
[2021-10-09 04:38] VITALS: BP 157/71
[2021-10-09 08:15] VITALS: BP 144/77
[2021-10-09 08:30] VITALS: BP 144/77
[2021-10-09] MEDS: levoFLOXacin 500MG 100 ML IV SCH (09:53)
[2021-10-09] MEDS: METOPROLOL TARTRATE 25 MG TAB PO SCH (09:54)
[2021-10-09] MEDS: APIXABAN 5 MG TAB PO SCH (09:54)
[2021-10-09] MEDS: FAMOTIDINE (10MG/ML) 2ML VL IV SCH (09:54)
[2021-10-09] MEDS ORDERED: guaiFENesin 200 MG/10 ML UD PO PRN (12:00)
[2021-10-09 12:30] VITALS: BP 125/67
[2021-10-09 16:30] VITALS: BP 142/69
[2021-10-09 18:10] VITALS: BP 142/69
[2021-10-09] MEDS ORDERED: APIX5TAB PO (18:55)
[2021-10-09] MEDS ORDERED: MET25T PO (18:55)
== END 2021-10-09 20:40 | DRG 871 ==
LOC: ER 11:44 → TELE-EAST 16:30
PROVIDERS: ADMIT Hospitalist; ATTEND Internal Medicine
PROC: 4A023N7 Measurement of Cardiac Sampling and Pressure, Left Heart, Percutaneous Approach (ICD-10-PCS; principal; 2021-10-04)
PROC: B211YZZ Fluoroscopy of Multiple Coronary Arteries using Other Contrast (ICD-10-PCS; 2021-10-04)
PROC: B215YZZ Fluoroscopy of Left Heart using Other Contrast (ICD-10-PCS; 2021-10-04)
PROC: 4A033BC Measurement of Arterial Pressure, Coronary, Percutaneous Approach (ICD-10-PCS; 2021-10-04)
PROC: 5A09357 Assistance with Respiratory Ventilation, Less than 24 Consecutive Hours, Continuous Positive Airway Pressure (ICD-10-PCS; 2021-10-05)
DX: A41.9 Sepsis, unspecified organism (principal); I46.9 Cardiac arrest, cause unspecified; G93.41 Metabolic encephalopathy; J15.6 Pneumonia due to other Gram-negative bacteria; I50.33 Acute on chronic diastolic (congestive) heart failure; J96.21 Acute and chronic respiratory failure with hypoxia; E44.0 Moderate protein-calorie malnutrition; N39.0 Urinary tract infection, site not specified; I13.0 Hypertensive heart and chronic kidney disease with heart failure and stage 1 through stage 4 chronic kidney disease, or unspecified chronic kidney disease; I48.20 Chronic atrial fibrillation, unspecified; D63.8 Anemia in other chronic diseases classified elsewhere; F03.90 Unspecified dementia, unspecified severity, without behavioral disturbance, psychotic disturbance, mood disturbance, and anxiety; G47.33 Obstructive sleep apnea (adult) (pediatric); I27.20 Pulmonary hypertension, unspecified; I48.0 Paroxysmal atrial fibrillation; N18.9 Chronic kidney disease, unspecified; I95.1 Orthostatic hypotension; E78.5 Hyperlipidemia, unspecified; Z20.822 Contact with and (suspected) exposure to COVID-19; R00.1 Bradycardia, unspecified; E66.9 Obesity, unspecified; R79.89 Other specified abnormal findings of blood chemistry; I25.10 Atherosclerotic heart disease of native coronary artery without angina pectoris; Z79.01 Long term (current) use of anticoagulants; Z68.33 Body mass index [BMI] 33.0-33.9, adult; Z79.899 Other long term (current) drug therapy; Z82.49 Family history of ischemic heart disease and other diseases of the circulatory system; Z86.73 Personal history of transient ischemic attack (TIA), and cerebral infarction without residual deficits; Z95.0 Presence of cardiac pacemaker; Z87.891 Personal history of nicotine dependence
CPT/HCPCS: 36415; 70450; 71045; 80048; 80053; 80061; 81001; 82533; 82550; 82607; 82728; 82746; 83036; 83615; 83690; 83735; 83880; 84100; 84443; 84484; 85025; 85379; 85610; 85652; 85730; 86141; 86850; 86900; 86901; 87040; 87086; 93005; 93306; 93458; 93571; 93886; 93970; 94660; 95819; 96372; 96374; 97163; 99152; 99153; G0378; G0463; J1956; J2001; J2250; J3490; Q9967

== ENCOUNTER 2022-03-28 15:16 | Inpatient (IN) | payer MEDICARE, OTHER ==
[~2022-03-28] VITALS: Ht 182.9 cm; Wt 114.6 kg
[2022-03-28] MEDS ORDERED: NITROGLYCERIN 0.4 MG SL TAB SL PRN (17:00)
[2022-03-28] MEDS ORDERED: MORPHINE SULFATE INJ 2 MG/ml SYRG IV PRN (17:00)
[2022-03-28] MEDS ORDERED: ACETAMINOPHEN 325 MG TAB PO PRN (17:00)
[2022-03-28] MEDS ORDERED: ALUM & MAG HYDROX-SIMETH LIQ(MAALOX) 30 ML PO PRN (17:00)
[2022-03-28] MEDS ORDERED: LORazepam 0.5 MG TAB PO PRN (17:00)
[2022-03-28] MEDS ORDERED: FUROSEMIDE 40 MG/4 ML VIAL IV ONE (17:00)
[2022-03-28] MEDS ORDERED: ONDANSETRON HCL 4 MG/2 ML VIAL IV PRN (17:00)
[2022-03-28] MEDS ORDERED: HYDROmorphone HCL 2 MG/ML VL/or syr IV PRN (17:00)
[2022-03-28] MEDS ORDERED: TAMS0.4C36 PO (18:07)
[2022-03-28] MEDS ORDERED: ATOR20TA50 PO (18:07)
[2022-03-28] MEDS ORDERED: APIX2.5T PO (18:07)
[2022-03-28] MEDS ORDERED: MET25T PO (18:07)
[2022-03-28 18:12] LABS: Eosinophils # (auto) 0.1 10 ^3/uL (0-0.8); Lymphocytes # (auto) 1.3 10 ^3/uL (0.4-5.4); Monocytes # (auto) 0.5 10 ^3/uL (0-1.3); Nucleated Red Blood Cells % 0.1 %
[2022-03-28 18:15] LABS: Basophils # (auto) 0 10 ^3/uL (0-0.2); Basophils % (auto) 0.8 % (0.0-2.0); Eosinophils % (auto) 1.3 % (0.0-7.0); Hematocrit 26.9 % (41.0-53.0); Hemoglobin 8.2 g/dL (13.5-17.5); Lymphocytes % (auto) 21.4 % (10.0-50.0); Mean Corpuscular Hemoglobin 25.9 pg (28.0-32.0); Mean Corpuscular Hgb Conc. 30.4 g/dL (32.0-36.0); Mean Corpuscular Volume 85.1 fL (80.0-100.0); Monocytes % (auto) 7.8 % (0.0-12.0); Neutrophils # (auto) 4.1 10 ^3/uL (1.6-8.6); Neutrophils % (auto) 68.7 % (37.0-80.0); Red Blood Cells 3.16 10^6/uL (4.5-5.90); Red Cell Distribution Width 17.1 % (11.8-14.3)
[2022-03-28 18:28] LABS: INR 1.28 (0.9-1.15); Partial Thromboplastin Time 32.2 sec (24.6-33.4)
[2022-03-28 18:33] LABS: Albumin 3.3 g/dL (3.4-5.0); Magnesium 2.2 mg/dL (1.6-2.6); Potassium 3.8 mmol/L (3.5-5.1)
[2022-03-28 18:36] LABS: BUN/Creatinine Ratio 10.1; Bilirubin, Total 0.8 mg/dL (0.2-1.0); Total Protein 6.6 g/dL (6.4-8.2)
[2022-03-28 21:28] LABS: Urine Bacteria NONE SEEN /hpf (None Seen); Urine Blood Negative /uL (Negative); Urine Hyaline Cast FEW /lpf (0 - 2); Urine Specific Gravity 1.006 (1.001-1.035); Urine WBC <1 /hpf (0 - 3)
[2022-03-28 22:00] VITALS: BP 132/71
[2022-03-28] MEDS: SODIUM CHLOR 0.9% PF (SALINE LOCK) 10ML VIAL/SYR IV SCH (23:55)
[2022-03-29] MEDS: HYDROcodone-ACET 5/325MG TAB PO PRN (01:54)
[2022-03-29 05:00] VITALS: BP 135/67
[2022-03-29] MEDS: FUROSEMIDE 20 MG/2 ML VIAL IV SCH ×2 (06:11→17:34)
[2022-03-29] MEDS: SODIUM CHLOR 0.9% PF (SALINE LOCK) 10ML VIAL/SYR IV SCH ×3 (06:12→22:11)
[2022-03-29 07:08] LABS: Calcium 8.8 mg/dL (8.5-10.1); Magnesium 1.8 mg/dL (1.6-2.6); Potassium 3.6 mmol/L (3.5-5.1)
[2022-03-29 07:11] LABS: BUN/Creatinine Ratio 9.7
[2022-03-29 08:00] VITALS: BP 151/51
[2022-03-29 08:05] VITALS: BP 138/78
[2022-03-29] MEDS ORDERED: CARVEDILOL 3.125 MG TAB PO ONE (10:45)
[2022-03-29] MEDS ORDERED: ENOXAPARIN SOD 30 MG/0.3 ML SYRINGE SC ONE (10:45)
[2022-03-29 12:00] VITALS: BP 147/58
[2022-03-29 16:00] VITALS: BP 138/59
[2022-03-29 22:00] VITALS: BP 145/76
[2022-03-29] MEDS: CARVEDILOL 3.125 MG TAB PO SCH (22:11)
[2022-03-30] VITALS (7 sets, daily range): BP systolic 145–151; BP diastolic 61–69
[2022-03-30] MEDS: FUROSEMIDE 20 MG/2 ML VIAL IV SCH ×2 (06:04→17:53)
[2022-03-30] MEDS: SODIUM CHLOR 0.9% PF (SALINE LOCK) 10ML VIAL/SYR IV SCH ×3 (06:04→22:00)
[2022-03-30] MEDS: ENOXAPARIN SOD 30 MG/0.3 ML SYRINGE SC SCH (09:23)
[2022-03-30] MEDS: CARVEDILOL 3.125 MG TAB PO SCH ×2 (09:23→21:33)
[2022-03-30] MEDS ORDERED: hydrALAZINE HCL 20 MG/ML VL IV PRN (13:30)
[2022-03-30] MEDS: HYDROcodone-ACET 5/325MG TAB PO PRN (16:52)
[2022-03-30] MEDS: SACUBITRIL-VALSARTAN 24mg/26mg TAB PO SCH (21:32)
[2022-03-31 05:00] VITALS: BP 142/73
[2022-03-31] MEDS: FUROSEMIDE 20 MG/2 ML VIAL IV SCH ×2 (05:51→18:01)
[2022-03-31] MEDS: SODIUM CHLOR 0.9% PF (SALINE LOCK) 10ML VIAL/SYR IV SCH ×3 (05:51→22:27)
[2022-03-31 06:31] LABS: Basophils # (auto) 0 10 ^3/uL (0-0.2); Eosinophils # (auto) 0.1 10 ^3/uL (0-0.8); Hematocrit 24.3 % (41.0-53.0); Hemoglobin 7.6 g/dL (13.5-17.5); Mean Corpuscular Volume 83.8 fL (80.0-100.0); Monocytes # (auto) 0.5 10 ^3/uL (0-1.3); Neutrophils # (auto) 3.3 10 ^3/uL (1.6-8.6); White Blood Cell 5.1 10^3/uL (4.4-10.8)
[2022-03-31 06:33] LABS: Basophils % (auto) 0.7 % (0.0-2.0); Eosinophils % (auto) 2.5 % (0.0-7.0); Lymphocytes # (auto) 1.2 10 ^3/uL (0.4-5.4); Lymphocytes % (auto) 22.5 % (10.0-50.0); Mean Corpuscular Hemoglobin 26.1 pg (28.0-32.0); Mean Corpuscular Hgb Conc. 31.1 g/dL (32.0-36.0); Monocytes % (auto) 9.7 % (0.0-12.0); Neutrophils % (auto) 64.6 % (37.0-80.0); Nucleated Red Blood Cells % 0.2 %; Red Cell Distribution Width 16.9 % (11.8-14.3)
[2022-03-31 06:39] LABS: Calcium 8.5 mg/dL (8.5-10.1); Potassium 3.5 mmol/L (3.5-5.1)
[2022-03-31 06:41] LABS: BUN/Creatinine Ratio 8.2
[2022-03-31 08:10] VITALS: BP 125/60
[2022-03-31 09:00] VITALS: BP 125/60
[2022-03-31] MEDS: SACUBITRIL-VALSARTAN 24mg/26mg TAB PO SCH ×2 (09:31→22:04)
[2022-03-31] MEDS: ENOXAPARIN SOD 30 MG/0.3 ML SYRINGE SC SCH (09:31)
[2022-03-31] MEDS: CARVEDILOL 3.125 MG TAB PO SCH ×2 (09:32→22:05)
[2022-03-31] MEDS: HYDROcodone-ACET 5/325MG TAB PO PRN (11:53)
[2022-03-31 13:00] VITALS: BP 96/41
[2022-03-31] MEDS ORDERED: PANTOPRAZOLE 40 MG TAB PO ONE (15:15)
[2022-03-31 17:00] VITALS: BP 123/65
[2022-03-31 17:58] LABS: Hematocrit 24.1 % (41.0-53.0); Hemoglobin 7.6 g/dL (13.5-17.5)
[2022-03-31 21:32] LABS: Hemoglobin 7.6 g/dL (13.5-17.5)
[2022-03-31 21:34] LABS: Hematocrit 24.1 % (41.0-53.0)
[2022-03-31 22:00] VITALS: BP 108/51
[2022-03-31] MEDS: PANTOPRAZOLE 40 MG TAB PO SCH (22:05)
[2022-04-01 02:44] LABS: Hemoglobin 7.4 g/dL (13.5-17.5)
[2022-04-01 05:00] VITALS: BP 122/64
[2022-04-01] MEDS: SODIUM CHLOR 0.9% PF (SALINE LOCK) 10ML VIAL/SYR IV SCH ×3 (05:47→21:48)
[2022-04-01] MEDS: FUROSEMIDE 20 MG/2 ML VIAL IV SCH ×2 (05:47→18:41)
[2022-04-01 08:05] VITALS: BP 107/48
[2022-04-01 09:00] VITALS: BP 107/48
[2022-04-01] MEDS: SACUBITRIL-VALSARTAN 24mg/26mg TAB PO SCH ×2 (09:59→21:47)
[2022-04-01] MEDS: PANTOPRAZOLE 40 MG TAB PO SCH ×2 (09:59→21:48)
[2022-04-01] MEDS: ENOXAPARIN SOD 30 MG/0.3 ML SYRINGE SC SCH (10:00)
[2022-04-01] MEDS: CARVEDILOL 3.125 MG TAB PO SCH ×2 (10:00→21:47)
[2022-04-01] MEDS: HYDROcodone-ACET 5/325MG TAB PO PRN (10:00)
[2022-04-01 13:00] VITALS: BP 117/51
[2022-04-01 17:00] VITALS: BP 110/54
[2022-04-01 22:00] VITALS: BP 109/61
[2022-04-02 05:00] VITALS: BP 133/66
[2022-04-02] MEDS: FUROSEMIDE 20 MG/2 ML VIAL IV SCH (05:09)
[2022-04-02] MEDS: SODIUM CHLOR 0.9% PF (SALINE LOCK) 10ML VIAL/SYR IV SCH ×3 (05:11→22:16)
[2022-04-02 07:05] LABS: Lymphocytes # (auto) 1.3 10 ^3/uL (0.4-5.4); Monocytes # (auto) 0.6 10 ^3/uL (0-1.3); White Blood Cell 5.5 10^3/uL (4.4-10.8)
[2022-04-02 07:07] LABS: Basophils # (auto) 0 10 ^3/uL (0-0.2); Basophils % (auto) 0.7 % (0.0-2.0); Eosinophils # (auto) 0.1 10 ^3/uL (0-0.8); Eosinophils % (auto) 2.2 % (0.0-7.0); Hemoglobin 7.5 g/dL (13.5-17.5); Lymphocytes % (auto) 24.1 % (10.0-50.0); Mean Corpuscular Hemoglobin 25.5 pg (28.0-32.0); Mean Corpuscular Hgb Conc. 31.3 g/dL (32.0-36.0); Mean Corpuscular Volume 81.6 fL (80.0-100.0); Monocytes % (auto) 11.2 % (0.0-12.0); Neutrophils # (auto) 3.4 10 ^3/uL (1.6-8.6); Neutrophils % (auto) 61.8 % (37.0-80.0); Red Blood Cells 2.93 10^6/uL (4.5-5.90); Red Cell Distribution Width 17.4 % (11.8-14.3)
[2022-04-02 08:57] VITALS: BP 156/53
[2022-04-02] MEDS: EMPAGLIFLOZIN 10 MG TAB PO SCH (10:00)
[2022-04-02] MEDS: PANTOPRAZOLE 40 MG TAB PO SCH (10:24)
[2022-04-02] MEDS: SACUBITRIL-VALSARTAN 24mg/26mg TAB PO SCH ×2 (10:24→22:20)
[2022-04-02] MEDS: CARVEDILOL 3.125 MG TAB PO SCH ×2 (10:26→22:20)
[2022-04-02 13:00] VITALS: BP 138/59
[2022-04-02] MEDS ORDERED: FUROSEMIDE 40 MG/4 ML VIAL IV ONE (16:30)
[2022-04-02 16:54] VITALS: BP 108/48
[2022-04-02 22:00] VITALS: BP 136/52
[2022-04-02] MEDS: APIXABAN 5 MG TAB PO SCH (22:20)
[2022-04-03 05:00] VITALS: BP 141/51
[2022-04-03] MEDS: SODIUM CHLOR 0.9% PF (SALINE LOCK) 10ML VIAL/SYR IV SCH ×2 (05:05→14:28)
[2022-04-03] MEDS: EMPAGLIFLOZIN 10 MG TAB PO SCH (06:23)
[2022-04-03 06:31] LABS: BUN/Creatinine Ratio 8.9; Potassium 3.3 mmol/L (3.5-5.1)
[2022-04-03 06:32] LABS: Calcium 7.9 mg/dL (8.5-10.1)
[2022-04-03 06:44] LABS: % Iron Saturation 5.7 % (20-55)
[2022-04-03 08:00] VITALS: BP 126/63
[2022-04-03 08:30] VITALS: BP 126/63
[2022-04-03] MEDS ORDERED: POTASSIUM EFFERVESENT TAB 25 MEQ PO ONE (09:00)
[2022-04-03] MEDS ORDERED: FUROSEMIDE 40 MG/4 ML VIAL IV ONE (09:00)
[2022-04-03 09:19] LABS: Hematocrit 23.3 % (41.0-53.0); Hemoglobin 7.5 g/dL (13.5-17.5)
[2022-04-03] MEDS: APIXABAN 5 MG TAB PO SCH (09:29)
[2022-04-03] MEDS: CARVEDILOL 3.125 MG TAB PO SCH (09:30)
[2022-04-03] MEDS: SACUBITRIL-VALSARTAN 24mg/26mg TAB PO SCH (09:31)
[2022-04-03] MEDS ORDERED: FUROSEMIDE 40 MG/4 ML VIAL IV SCH ×2 (10:00→18:00)
[2022-04-03 12:30] VITALS: BP 106/56
[2022-04-03 13:37] VITALS: BP 106/56
[2022-04-03 16:30] VITALS: BP 111/62
== END 2022-04-03 19:00 | DRG 291 ==
LOC: TELE 15:16 → UNDOADMIN 15:16 → TELE-WESTW 16:25 → TELE 16:25 → TELE-WESTW 17:00
PROVIDERS: ADMIT Internal Medicine; ATTEND Internal Medicine
DX: I13.0 Hypertensive heart and chronic kidney disease with heart failure and stage 1 through stage 4 chronic kidney disease, or unspecified chronic kidney disease (principal); I50.43 Acute on chronic combined systolic (congestive) and diastolic (congestive) heart failure; J96.20 Acute and chronic respiratory failure, unspecified whether with hypoxia or hypercapnia; I27.20 Pulmonary hypertension, unspecified; D63.8 Anemia in other chronic diseases classified elsewhere; Z20.822 Contact with and (suspected) exposure to COVID-19; N18.9 Chronic kidney disease, unspecified; I48.0 Paroxysmal atrial fibrillation; Z99.3 Dependence on wheelchair; Z79.01 Long term (current) use of anticoagulants; Z80.42 Family history of malignant neoplasm of prostate; Z82.49 Family history of ischemic heart disease and other diseases of the circulatory system; Z86.73 Personal history of transient ischemic attack (TIA), and cerebral infarction without residual deficits; E66.9 Obesity, unspecified; Z68.34 Body mass index [BMI] 34.0-34.9, adult
CPT/HCPCS: 36415; 71045; 80048; 80053; 81001; 82728; 83540; 83550; 83735; 83880; 84484; 85014; 85018; 85025; 85610; 85730; 87426; 93306; 97110; 97116; 97163; 97530; G0378

== ENCOUNTER 2022-05-04 08:14 | Inpatient (IN) | payer MEDICARE, OTHER ==
[~2022-05-04] VITALS: Ht 185.4 cm; Wt 101.5 kg
[~2022-05-04 08:14] MED LIST changes: +APIX2.5T PO; +ATOR20TA50 PO; +MET25T PO; +TAMS0.4C36 PO
[2022-05-04] MEDS ORDERED: ASPirin 325 MG TAB PO ONE (09:00)
[2022-05-04 09:45] LABS: Basophils # (auto) 0 10 ^3/uL (0-0.2); Basophils % (auto) 0.4 % (0.0-2.0); Eosinophils # (auto) 0.1 10 ^3/uL (0-0.8); Eosinophils % (auto) 2.3 % (0.0-7.0); Hematocrit 29.8 % (41.0-53.0); Hemoglobin 9.2 g/dL (13.5-17.5); Lymphocytes % (auto) 18.2 % (10.0-50.0); Mean Corpuscular Hemoglobin 23.5 pg (28.0-32.0); Mean Corpuscular Hgb Conc. 30.8 g/dL (32.0-36.0); Mean Corpuscular Volume 76.3 fL (80.0-100.0); Monocytes # (auto) 0.4 10 ^3/uL (0-1.3); Monocytes % (auto) 7.8 % (0.0-12.0); Neutrophils # (auto) 3.8 10 ^3/uL (1.6-8.6); Neutrophils % (auto) 71.3 % (37.0-80.0); Red Cell Distribution Width 18.1 % (11.8-14.3); White Blood Cell 5.3 10^3/uL (4.4-10.8)
[2022-05-04 10:02] LABS: Albumin 3.1 g/dL (3.4-5.0); Magnesium 2.8 mg/dL (1.6-2.6); Potassium 4.1 mmol/L (3.5-5.1)
[2022-05-04 10:05] LABS: BUN/Creatinine Ratio 13.4; Bilirubin, Total 0.5 mg/dL (0.2-1.0); Total Protein 6.4 g/dL (6.4-8.2)
[2022-05-04] MEDS ORDERED: NITROGLYCERIN 0.4 MG SL TAB SL PRN (18:15)
[2022-05-04] MEDS ORDERED: MORPHINE SULFATE INJ 2 MG/ml SYRG IV PRN (18:15)
[2022-05-04] MEDS ORDERED: ACETAMINOPHEN 325 MG TAB PO PRN (18:15)
[2022-05-04] MEDS: SODIUM CHLORIDE 0.9% 1,000 ML IV SCH (18:53)
[2022-05-04 19:14] LABS: % Iron Saturation 6.1 % (20-55)
[2022-05-04 19:31] LABS: Cholesterol 148 mg/dL (< 200); HDL Cholesterol 59 mg/dL (40-59); LDL Cholesterol 88 mg/dL (< 100); Triglycerides 52 mg/dL (< 150)
[2022-05-04 23:49] VITALS: BP 98/42
[2022-05-05] MEDS ORDERED: CAR3125T PO (01:47)
[2022-05-05] MEDS ORDERED: HYDR-4902 PO (01:47)
[2022-05-05] MEDS ORDERED: ONDA-144 PO (01:47)
[2022-05-05] MEDS ORDERED: PANT40TA2 PO (01:47)
[2022-05-05] MEDS ORDERED: ACET-1156 PO (01:47)
[2022-05-05] MEDS ORDERED: MAGN24002 PO (01:47)
[2022-05-05] MEDS ORDERED: BISA10SU45 RE (01:47)
[2022-05-05] MEDS ORDERED: EMPA1TAB PO (01:47)
[2022-05-05] MEDS ORDERED: FURO1TAB31 PO (01:47)
[2022-05-05] MEDS ORDERED: MAA30LQ PO (01:47)
[2022-05-05] MEDS ORDERED: SACU1TAB PO (01:47)
[2022-05-05] MEDS ORDERED: HYDR10TA26 PO (01:47)
[2022-05-05] MEDS ORDERED: NITR0.4S29 SL (01:47)
[2022-05-05 05:00] VITALS: BP 124/53
[2022-05-05 05:45] LABS: Basophils # (auto) 0 10 ^3/uL (0-0.2); Basophils % (auto) 0.5 % (0.0-2.0); Lymphocytes # (auto) 1.4 10 ^3/uL (0.4-5.4); Lymphocytes % (auto) 23.7 % (10.0-50.0)
[2022-05-05 05:47] LABS: Eosinophils # (auto) 0.1 10 ^3/uL (0-0.8); Eosinophils % (auto) 2.4 % (0.0-7.0); Hematocrit 28.1 % (41.0-53.0); Hemoglobin 8.3 g/dL (13.5-17.5); Mean Corpuscular Hemoglobin 22.7 pg (28.0-32.0); Mean Corpuscular Hgb Conc. 29.6 g/dL (32.0-36.0); Mean Corpuscular Volume 76.8 fL (80.0-100.0); Monocytes # (auto) 0.5 10 ^3/uL (0-1.3); Monocytes % (auto) 8.5 % (0.0-12.0); Neutrophils # (auto) 3.8 10 ^3/uL (1.6-8.6); Neutrophils % (auto) 64.9 % (37.0-80.0); Nucleated Red Blood Cells % 0.1 %; Red Blood Cells 3.66 10^6/uL (4.5-5.90); Red Cell Distribution Width 18.3 % (11.8-14.3); White Blood Cell 5.8 10^3/uL (4.4-10.8)
[2022-05-05 05:50] LABS: Potassium 4.2 mmol/L (3.5-5.1)
[2022-05-05 05:53] LABS: BUN/Creatinine Ratio 14.5; Bilirubin, Total 0.5 mg/dL (0.2-1.0); Total Protein 6.1 g/dL (6.4-8.2)
[2022-05-05 08:00] VITALS: BP 103/55
[2022-05-05] MEDS: ENOXAPARIN SOD 40 MG/0.4 ML SYRINGE SC SCH (09:45)
[2022-05-05] MEDS: ASPirin 81 mg TAB PO SCH (09:45)
[2022-05-05 12:00] VITALS: BP 125/51
[2022-05-05] MEDS: SODIUM CHLORIDE 0.9% 1,000 ML IV SCH (13:14)
[2022-05-05 16:00] VITALS: BP 127/51
[2022-05-05 22:00] VITALS: BP 120/53
[2022-05-05] MEDS ORDERED: LORazepam 2MG/ML-1ML VIAL IV PRN (22:30)
[2022-05-06 04:47] VITALS: BP_SYST 121; BP_SYST 133; BP_SYST 136; BP_DIAS 55; BP_DIAS 58; BP_DIAS 64
[2022-05-06 05:00] VITALS: BP_SYST 121; BP_SYST 133; BP_SYST 136; BP_DIAS 55; BP_DIAS 58; BP_DIAS 64
[2022-05-06] MEDS: SODIUM CHLORIDE 0.9% 1,000 ML IV SCH (05:33)
[2022-05-06 08:36] VITALS: BP 119/46
[2022-05-06] MEDS: ASPirin 81 mg TAB PO SCH (09:38)
[2022-05-06] MEDS: ENOXAPARIN SOD 40 MG/0.4 ML SYRINGE SC SCH (09:39)
[2022-05-06 13:00] VITALS: BP 118/60
[2022-05-06 16:44] VITALS: BP 123/52
[2022-05-07 00:56] VITALS: BP 128/71
[2022-05-07] MEDS: SODIUM CHLORIDE 0.9% 1,000 ML IV SCH ×2 (05:23→12:55)
[2022-05-07 06:20] VITALS: BP 136/69
[2022-05-07 08:30] VITALS: BP 126/54
[2022-05-07] MEDS: ASPirin 81 mg TAB PO SCH (09:36)
[2022-05-07] MEDS: ENOXAPARIN SOD 40 MG/0.4 ML SYRINGE SC SCH (09:38)
[2022-05-07] MEDS ORDERED: FUROSEMIDE 40 MG/4 ML VIAL IV ONE (11:15)
[2022-05-07 12:10] VITALS: BP 108/71
[2022-05-07 12:25] LABS: Hepatitis C Antibody Negative (Negative)
[2022-05-07 16:52] VITALS: BP 137/68
[2022-05-07] MEDS: FUROSEMIDE 40 MG/4 ML VIAL IV SCH (17:54)
[2022-05-07 21:28] VITALS: BP 121/77
[2022-05-07] MEDS: SACUBITRIL-VALSARTAN 24mg/26mg TAB PO SCH (21:35)
[2022-05-07] MEDS: CARVEDILOL 3.125 MG TAB PO SCH (21:35)
[2022-05-07] MEDS: APIXABAN 2.5 MG TAB PO SCH (21:36)
[2022-05-07 23:04] LABS: Basophils # (auto) 0 10 ^3/uL (0-0.2); Eosinophils # (auto) 0.2 10 ^3/uL (0-0.8); Hemoglobin 8.3 g/dL (13.5-17.5); Lymphocytes # (auto) 1.3 10 ^3/uL (0.4-5.4); Monocytes # (auto) 0.6 10 ^3/uL (0-1.3); White Blood Cell 6.1 10^3/uL (4.4-10.8)
[2022-05-07 23:06] LABS: Basophils % (auto) 0.5 % (0.0-2.0); Eosinophils % (auto) 2.8 % (0.0-7.0); Hematocrit 27.5 % (41.0-53.0); Lymphocytes % (auto) 20.9 % (10.0-50.0); Mean Corpuscular Hemoglobin 22.9 pg (28.0-32.0); Mean Corpuscular Hgb Conc. 30.2 g/dL (32.0-36.0); Mean Corpuscular Volume 75.8 fL (80.0-100.0); Monocytes % (auto) 10.2 % (0.0-12.0); Neutrophils % (auto) 65.6 % (37.0-80.0); Nucleated Red Blood Cells % 0.1 %; Red Blood Cells 3.63 10^6/uL (4.5-5.90)
[2022-05-07 23:11] LABS: BUN/Creatinine Ratio 14.2; Calcium 8.8 mg/dL (8.5-10.1); Potassium 3.8 mmol/L (3.5-5.1)
[2022-05-07 23:14] LABS: Bilirubin, Total 0.5 mg/dL (0.2-1.0); Total Protein 6.8 g/dL (6.4-8.2)
[2022-05-08 05:20] VITALS: BP 129/54
[2022-05-08] MEDS: SODIUM CHLORIDE 0.9% 1,000 ML IV SCH ×2 (05:35→22:15)
[2022-05-08] MEDS: EMPAGLIFLOZIN 10 MG TAB PO SCH (06:46)
[2022-05-08] MEDS: FUROSEMIDE 40 MG/4 ML VIAL IV SCH ×2 (06:46→18:30)
[2022-05-08 09:00] VITALS: BP 115/69
[2022-05-08] MEDS: SACUBITRIL-VALSARTAN 24mg/26mg TAB PO SCH ×2 (10:00→22:11)
[2022-05-08] MEDS: CARVEDILOL 3.125 MG TAB PO SCH (10:00)
[2022-05-08] MEDS: ASPirin 81 mg TAB PO SCH (10:00)
[2022-05-08] MEDS: APIXABAN 2.5 MG TAB PO SCH (10:00)
[2022-05-08 13:00] VITALS: BP 91/56
[2022-05-08 16:35] VITALS: BP 106/61
[2022-05-08 22:00] VITALS: BP_SYST 101; BP_SYST 104; BP_SYST 73; BP_DIAS 34; BP_DIAS 44; BP_DIAS 50
[2022-05-09 00:32] VITALS: BP 101/44
[2022-05-09 05:00] VITALS: BP 105/50
[2022-05-09] MEDS: FUROSEMIDE 40 MG/4 ML VIAL IV SCH (06:00)
[2022-05-09] MEDS: EMPAGLIFLOZIN 10 MG TAB PO SCH (06:58)
[2022-05-09 09:00] VITALS: BP 105/49
[2022-05-09] MEDS: ASPirin 81 mg TAB PO SCH (09:56)
[2022-05-09] MEDS: SACUBITRIL-VALSARTAN 24mg/26mg TAB PO SCH (09:57)
[2022-05-09] MEDS ORDERED: ASPirin 81 mg TAB PO SCH (10:00)
[2022-05-09 13:00] VITALS: BP 130/66
[2022-05-09 15:09] VITALS: BP 105/50
[2022-05-09 16:33] VITALS: BP 114/43
== END 2022-05-09 17:00 | DRG 291 ==
LOC: ER 08:14 → EDBD 08:14 → EDUNIT# 08:14 → TELE 18:19 → TELE-WESTW 23:00
PROVIDERS: ADMIT Nurse Practitioner Family; ATTEND Family Medicine
PROC: 4B02XSZ Measurement of Cardiac Pacemaker, External Approach (ICD-10-PCS; principal; 2022-05-09)
DX: I11.0 Hypertensive heart disease with heart failure (principal); I50.43 Acute on chronic combined systolic (congestive) and diastolic (congestive) heart failure; E46 Unspecified protein-calorie malnutrition; I48.20 Chronic atrial fibrillation, unspecified; I49.5 Sick sinus syndrome; I27.21 Secondary pulmonary arterial hypertension; D50.9 Iron deficiency anemia, unspecified; E78.5 Hyperlipidemia, unspecified; E11.9 Type 2 diabetes mellitus without complications; Z20.822 Contact with and (suspected) exposure to COVID-19; F03.90 Unspecified dementia, unspecified severity, without behavioral disturbance, psychotic disturbance, mood disturbance, and anxiety; D63.8 Anemia in other chronic diseases classified elsewhere; F17.200 Nicotine dependence, unspecified, uncomplicated; I25.10 Atherosclerotic heart disease of native coronary artery without angina pectoris; I27.20 Pulmonary hypertension, unspecified; I25.2 Old myocardial infarction; Z95.0 Presence of cardiac pacemaker; Z79.01 Long term (current) use of anticoagulants; Z79.82 Long term (current) use of aspirin; Z80.42 Family history of malignant neoplasm of prostate; Z82.49 Family history of ischemic heart disease and other diseases of the circulatory system; Z86.73 Personal history of transient ischemic attack (TIA), and cerebral infarction without residual deficits; Z99.3 Dependence on wheelchair; Z68.31 Body mass index [BMI] 31.0-31.9, adult; I65.23 Occlusion and stenosis of bilateral carotid arteries
CPT/HCPCS: 36415; 70551; 71045; 80053; 80061; 82962; 83036; 83540; 83550; 83735; 83880; 84443; 84484; 85025; 86803; 87081; 87340; 87426; 93005; 93886; 95819; 96360; 96372; G0378

== ENCOUNTER 2022-10-07 12:21 | Inpatient (IN) | payer MEDICARE, OTHER ==
[~2022-10-07] VITALS: Ht 188 cm; Wt 111.4 kg
[~2022-10-07 12:21] MED LIST changes: +ACET-1156 PO; +BISA10SU45 RE; +CAR3125T PO; +EMPA1TAB PO; +FURO1TAB31 PO; +HYDR-4902 PO; +HYDR10TA26 PO; +LORA0.5T20 PO; +MAA30LQ PO; +MAGN24002 PO; +NITR0.4S29 SL; +ONDA-144 PO; +PANT40TA2 PO; +SACU1TAB PO
[2022-10-07 13:05] LABS: Albumin 3.4 g/dL (3.4-5.0); Calcium 8.5 mg/dL (8.5-10.1); Potassium 3.9 mmol/L (3.5-5.1)
[2022-10-07 13:06] LABS: Eosinophils # (auto) 0.1 10 ^3/uL (0-0.8); Hemoglobin 9.5 g/dL (13.5-17.5)
[2022-10-07 13:09] LABS: BUN/Creatinine Ratio 11.4 (10.0-20.0); Basophils # (auto) 0 10 ^3/uL (0-0.2); Basophils % (auto) 0.6 % (0.0-2.0); Bilirubin, Total 0.7 mg/dL (0.2-1.0); Eosinophils % (auto) 1.9 % (0.0-7.0); Hematocrit 30.7 % (41.0-53.0); Lymphocytes # (auto) 1.2 10 ^3/uL (0.4-5.4); Lymphocytes % (auto) 22.9 % (10.0-50.0); Mean Corpuscular Hemoglobin 28.4 pg (28.0-32.0); Mean Corpuscular Volume 91.8 fL (80.0-100.0); Monocytes # (auto) 0.6 10 ^3/uL (0-1.3); Monocytes % (auto) 10.5 % (0.0-12.0); Neutrophils # (auto) 3.4 10 ^3/uL (1.6-8.6); Neutrophils % (auto) 64.1 % (37.0-80.0); Nucleated Red Blood Cells % 0.1 %; Red Blood Cells 3.34 10^6/uL (4.5-5.90); Total Protein 6.5 g/dL (6.4-8.2); White Blood Cell 5.3 10^3/uL (4.4-10.8)
[2022-10-07 13:36] LABS: Red Cell Distribution Width 20.3 % (11.8-14.3)
[2022-10-07] MEDS ORDERED: FUROSEMIDE 40 MG/4 ML VIAL IV ONE (14:15)
[2022-10-07 18:15] LABS: Urine Bacteria NONE SEEN /hpf (None Seen); Urine Blood Negative /uL (Negative); Urine Mucus FEW (None Seen); Urine Specific Gravity 1.023 (1.001-1.035); Urine WBC 2 /hpf (0 - 3)
[2022-10-07] MEDS ORDERED: LORazepam 0.5 MG TAB PO PRN (18:45)
[2022-10-07] MEDS ORDERED: NITROGLYCERIN 0.4 MG SL TAB SL PRN (18:45)
[2022-10-07] MEDS ORDERED: MORPHINE SULFATE INJ 2 MG/ml SYRG IV PRN (18:45)
[2022-10-07] MEDS ORDERED: ALBUTEROL SULF 2.5 MG/0.5ML(0.5%) NEB SOLN NEB PRN (19:00)
[2022-10-07] MEDS ORDERED: IPRATROPIUM BROM 0.5 MG/2.5ML INH SOL NEB PRN (19:00)
[2022-10-07 19:26] LABS: Cholesterol 126 mg/dL (< 200)
[2022-10-07 19:29] LABS: HDL Cholesterol 67 mg/dL (40-59); LDL Cholesterol 61 mg/dL (< 100); Triglycerides 34 mg/dL (< 150)
[2022-10-07 19:35] LABS: INR 1.13 (0.9-1.15); Partial Thromboplastin Time 31.9 sec (24.6-33.4)
[2022-10-07 22:00] VITALS: BP_SYST 118; BP_SYST 155; BP_DIAS 76; BP_DIAS 83
[2022-10-07] MEDS: CARVEDILOL 3.125 MG TAB PO SCH (22:35)
[2022-10-07] MEDS: ATORVASTATIN 20 MG TAB PO SCH (22:36)
[2022-10-07] MEDS: METOPROLOL TARTRATE 25 MG TAB PO SCH (22:36)
[2022-10-07 23:04] VITALS: BP 138/68
[2022-10-07 23:22] VITALS: BP 127/51
[2022-10-08] VITALS (7 sets, daily range): BP systolic 112–149; BP diastolic 54–80
[2022-10-08] MEDS: ALBUTEROL SULF 2.5 MG/0.5ML(0.5%) NEB SOLN NEB SCH ×4 (00:18→19:00)
[2022-10-08] MEDS: IPRATROPIUM BROM 0.5 MG/2.5ML INH SOL NEB SCH ×3 (06:45→19:00)
[2022-10-08 08:42] LABS: Basophils # (auto) 0 10 ^3/uL (0-0.2); Basophils % (auto) 0.6 % (0.0-2.0); Eosinophils # (auto) 0.1 10 ^3/uL (0-0.8); Eosinophils % (auto) 1.6 % (0.0-7.0); Hematocrit 32.6 % (41.0-53.0); Hemoglobin 10.2 g/dL (13.5-17.5); Lymphocytes % (auto) 17.1 % (10.0-50.0); Mean Corpuscular Hemoglobin 28.7 pg (28.0-32.0); Mean Corpuscular Hgb Conc. 31.3 g/dL (32.0-36.0); Mean Corpuscular Volume 91.6 fL (80.0-100.0); Monocytes # (auto) 0.5 10 ^3/uL (0-1.3); Neutrophils # (auto) 4.2 10 ^3/uL (1.6-8.6); Neutrophils % (auto) 72.7 % (37.0-80.0); Nucleated Red Blood Cells % 0.2 %; Red Blood Cells 3.56 10^6/uL (4.5-5.90); White Blood Cell 5.7 10^3/uL (4.4-10.8)
[2022-10-08 08:49] LABS: Red Cell Distribution Width 20.4 % (11.8-14.3)
[2022-10-08 08:57] LABS: Albumin 3.5 g/dL (3.4-5.0); Potassium 3.9 mmol/L (3.5-5.1)
[2022-10-08 09:02] LABS: BUN/Creatinine Ratio 11.2 (10.0-20.0); Bilirubin, Total 1.2 mg/dL (0.2-1.0); Total Protein 7.2 g/dL (6.4-8.2)
[2022-10-08] MEDS: TAMSULOSIN HYDROCHLORIDE 0.4 MG CAP PO SCH (09:47)
[2022-10-08] MEDS: SACUBITRIL-VALSARTAN 24mg/26mg TAB PO SCH (09:47)
[2022-10-08] MEDS: METOPROLOL TARTRATE 25 MG TAB PO SCH ×2 (09:49→21:11)
[2022-10-08] MEDS: POTASSIUM CHL 20 Meq TABLET PO SCH (09:50)
[2022-10-08] MEDS: CARVEDILOL 3.125 MG TAB PO SCH ×2 (09:52→21:10)
[2022-10-08] MEDS: PANTOPRAZOLE 40 MG/10 ML VIAL INJ IV SCH (09:53)
[2022-10-08] MEDS: ENOXAPARIN SOD 40 MG/0.4 ML SYRINGE SC SCH (09:53)
[2022-10-08] MEDS: ATORVASTATIN 20 MG TAB PO SCH (21:10)
[2022-10-08] MEDS: FUROSEMIDE 40 MG/4 ML VIAL IV SCH (21:15)
[2022-10-09] MEDS: ALBUTEROL SULF 2.5 MG/0.5ML(0.5%) NEB SOLN NEB SCH ×4 (00:24→18:11)
[2022-10-09] MEDS: HYDROcodone-ACET 5/325MG TAB PO PRN ×2 (03:02→15:12)
[2022-10-09 05:00] VITALS: BP 135/44
[2022-10-09 05:31] LABS: BUN/Creatinine Ratio 13.9 (10.0-20.0); Calcium 8.2 mg/dL (8.5-10.1); Magnesium 2.2 mg/dL (1.6-2.6); Potassium 3.7 mmol/L (3.5-5.1)
[2022-10-09] MEDS: IPRATROPIUM BROM 0.5 MG/2.5ML INH SOL NEB SCH ×3 (06:11→18:11)
[2022-10-09 09:00] VITALS: BP 110/56
[2022-10-09] MEDS ORDERED: FUROSEMIDE 40 MG/4 ML VIAL IV SCH (10:00)
[2022-10-09] MEDS: ENOXAPARIN SOD 40 MG/0.4 ML SYRINGE SC SCH (10:01)
[2022-10-09] MEDS: SACUBITRIL-VALSARTAN 24mg/26mg TAB PO SCH (10:01)
[2022-10-09] MEDS: TAMSULOSIN HYDROCHLORIDE 0.4 MG CAP PO SCH (10:01)
[2022-10-09] MEDS: PANTOPRAZOLE 40 MG/10 ML VIAL INJ IV SCH (10:01)
[2022-10-09] MEDS: POTASSIUM CHL 20 Meq TABLET PO SCH (10:02)
[2022-10-09] MEDS: METOPROLOL TARTRATE 25 MG TAB PO SCH ×2 (10:02→21:52)
[2022-10-09] MEDS: CARVEDILOL 3.125 MG TAB PO SCH ×2 (10:02→21:51)
[2022-10-09] MEDS: FUROSEMIDE 40 MG/4 ML VIAL IV SCH ×2 (10:04→21:50)
[2022-10-09 13:00] VITALS: BP 100/56
[2022-10-09 17:00] VITALS: BP 116/53
[2022-10-09 20:00] VITALS: BP 118/56
[2022-10-09] MEDS: ATORVASTATIN 20 MG TAB PO SCH (21:51)
[2022-10-09 22:00] VITALS: BP 108/53
[2022-10-10] MEDS: ALBUTEROL SULF 2.5 MG/0.5ML(0.5%) NEB SOLN NEB SCH ×4 (00:03→18:07)
[2022-10-10 05:00] VITALS: BP 132/56
[2022-10-10 05:44] LABS: BUN/Creatinine Ratio 12.9 (10.0-20.0); Calcium 8.4 mg/dL (8.5-10.1)
[2022-10-10] MEDS: IPRATROPIUM BROM 0.5 MG/2.5ML INH SOL NEB SCH ×3 (06:32→18:08)
[2022-10-10] MEDS: PANTOPRAZOLE 40 MG/10 ML VIAL INJ IV SCH (08:46)
[2022-10-10] MEDS: TAMSULOSIN HYDROCHLORIDE 0.4 MG CAP PO SCH (08:47)
[2022-10-10] MEDS: POTASSIUM CHL 20 Meq TABLET PO SCH (08:47)
[2022-10-10] MEDS: SACUBITRIL-VALSARTAN 24mg/26mg TAB PO SCH (08:47)
[2022-10-10] MEDS: METOPROLOL TARTRATE 25 MG TAB PO SCH (08:48)
[2022-10-10] MEDS: HYDROcodone-ACET 5/325MG TAB PO PRN ×2 (08:48→20:33)
[2022-10-10 09:00] VITALS: BP 129/67
[2022-10-10] MEDS: ENOXAPARIN SOD 40 MG/0.4 ML SYRINGE SC SCH (09:22)
[2022-10-10] MEDS: FUROSEMIDE 40 MG/4 ML VIAL IV SCH ×2 (09:23→21:43)
[2022-10-10] MEDS: CARVEDILOL 3.125 MG TAB PO SCH ×2 (09:23→21:42)
[2022-10-10 13:00] VITALS: BP 105/51
[2022-10-10 17:00] VITALS: BP 118/55
[2022-10-10] MEDS: ATORVASTATIN 20 MG TAB PO SCH (21:42)
[2022-10-10] MEDS: APIXABAN 2.5 MG TAB PO SCH (21:42)
[2022-10-10 22:00] VITALS: BP 141/46
[2022-10-11] MEDS: HYDROcodone-ACET 5/325MG TAB PO PRN (04:14)
[2022-10-11 05:00] VITALS: BP 123/55
[2022-10-11 05:04] VITALS: BP 141/46
[2022-10-11 05:32] LABS: Calcium 8.6 mg/dL (8.5-10.1); Potassium 3.8 mmol/L (3.5-5.1)
[2022-10-11 05:35] LABS: BUN/Creatinine Ratio 13.6 (10.0-20.0)
[2022-10-11] MEDS: ALBUTEROL SULF 2.5 MG/0.5ML(0.5%) NEB SOLN NEB SCH ×3 (06:19→18:22)
[2022-10-11] MEDS: IPRATROPIUM BROM 0.5 MG/2.5ML INH SOL NEB SCH ×3 (06:20→18:22)
[2022-10-11] MEDS ORDERED: EMPAGLIFLOZIN 10 MG TAB PO SCH (07:00)
[2022-10-11 08:00] VITALS: BP 124/61
[2022-10-11] MEDS: PANTOPRAZOLE 40 MG/10 ML VIAL INJ IV SCH (11:22)
[2022-10-11] MEDS: SACUBITRIL-VALSARTAN 24mg/26mg TAB PO SCH (11:23)
[2022-10-11] MEDS: TAMSULOSIN HYDROCHLORIDE 0.4 MG CAP PO SCH (11:23)
[2022-10-11] MEDS: FUROSEMIDE 40 MG/4 ML VIAL IV SCH (11:23)
[2022-10-11] MEDS: CARVEDILOL 3.125 MG TAB PO SCH (11:24)
[2022-10-11] MEDS: APIXABAN 2.5 MG TAB PO SCH (11:24)
[2022-10-11] MEDS: POTASSIUM CHL 20 Meq TABLET PO SCH (11:24)
[2022-10-11 12:00] VITALS: BP 119/52
[2022-10-11 16:00] VITALS: BP 123/64
[2022-10-11 16:41] VITALS: BP 123/64
== END 2022-10-11 19:15 | disposition home or self-care (01) | DRG 291 ==
LOC: ER 12:21 → TELE 18:50 → TELE-EAST 22:59
PROVIDERS: ADMIT Registered Nurse; ATTEND Internal Medicine
DX: I13.0 Hypertensive heart and chronic kidney disease with heart failure and stage 1 through stage 4 chronic kidney disease, or unspecified chronic kidney disease (principal); I50.23 Acute on chronic systolic (congestive) heart failure; I48.20 Chronic atrial fibrillation, unspecified; I42.8 Other cardiomyopathies; E78.5 Hyperlipidemia, unspecified; D63.8 Anemia in other chronic diseases classified elsewhere; F03.90 Unspecified dementia, unspecified severity, without behavioral disturbance, psychotic disturbance, mood disturbance, and anxiety; I49.5 Sick sinus syndrome; I27.20 Pulmonary hypertension, unspecified; N18.9 Chronic kidney disease, unspecified; J44.9 Chronic obstructive pulmonary disease, unspecified; E66.9 Obesity, unspecified; I25.2 Old myocardial infarction; Z86.73 Personal history of transient ischemic attack (TIA), and cerebral infarction without residual deficits; Z79.01 Long term (current) use of anticoagulants; Z95.0 Presence of cardiac pacemaker; Z82.49 Family history of ischemic heart disease and other diseases of the circulatory system; Z80.42 Family history of malignant neoplasm of prostate; Z68.31 Body mass index [BMI] 31.0-31.9, adult
CPT/HCPCS: 36415; 71045; 80048; 80053; 80061; 81001; 83036; 83735; 83880; 84443; 84484; 85025; 85610; 85730; 93005; 93306; 93970; 94640; 96374; 97110; 97116; 97163; 97530; 99291; C9113; G0378

== ENCOUNTER → 2023-01-15 | Outpatient (CLI) | payer MEDICARE, OTHER ==
[~2023-01-15] MED LIST changes: -ACET-1156 PO; +ACET-1881 PO; -APIX5TAB PO; -HYDR10TA26 PO; -LORA0.5T20 PO; -MET25T PO
[2023-01-15 12:12] LABS: Calcium 8.5 mg/dL (8.5-10.1); Potassium 3.9 mmol/L (3.5-5.1)
[2023-01-15 12:15] LABS: BUN/Creatinine Ratio 10.3 (10.0-20.0)
== END | disposition home or self-care (01) ==
LOC: LAB 10:36
PROVIDERS: ATTEND Internal Medicine
DX: I10 Essential (primary) hypertension (principal); Z79.899 Other long term (current) drug therapy
CPT/HCPCS: 36415; 80048; 82306

== ENCOUNTER 2023-04-04 07:33 | Inpatient (IN) | payer MEDICARE, OTHER ==
[~2023-04-04] VITALS: Ht 182.9 cm; Wt 100.8 kg
[2023-04-04 08:25] LABS: Alanine Aminotransferase 27 U/L (7-40); Alkaline Phosphatase 105 U/L (46-116); Amylase 43 U/L (30-118); Anion Gap 10 (5-15); Aspartate Aminotransferase 40 U/L (13-40); BUN/Creatinine Ratio 15.8 (10.0-20.0); Blood Urea Nitrogen 27 mg/dL (9-23); Calcium 9.5 mg/dL (8.5-10.1); Carbon Dioxide 30 mmol/L (20-30); Chloride 99 mmol/L (98-107); Glucose 142 mg/dL (74-106); Potassium 3.9 mmol/L (3.5-5.1); Sodium 139 mmol/L (136-145)
[2023-04-04 08:26] LABS: Albumin 4.1 g/dL (3.2-4.8); Bilirubin, Total 3.1 mg/dL (0.2-1.0); Total Protein 7.2 g/dL (5.7-8.2)
[2023-04-04 08:53] LABS: Basophils # (auto) 0 10 ^3/uL (0-0.2); Basophils % (auto) 0.1 % (0.0-2.0); Eosinophils # (auto) 0 10 ^3/uL (0-0.8); Lymphocytes # (auto) 0.7 10 ^3/uL (0.4-5.4); Mean Corpuscular Hgb Conc. 33.5 g/dL (32.0-36.0); Monocytes # (auto) 1.1 10 ^3/uL (0-1.3); Neutrophils % (auto) 88.9 % (37.0-80.0)
[2023-04-04 08:55] LABS: Hematocrit 44.5 % (41.0-53.0); Hemoglobin 14.9 g/dL (13.5-17.5); Lymphocytes % (auto) 4.4 % (10.0-50.0); Mean Corpuscular Hemoglobin 37.8 pg (28.0-32.0); Mean Corpuscular Volume 112.9 fL (80.0-100.0); Monocytes % (auto) 6.6 % (0.0-12.0); Neutrophils # (auto) 14.8 10 ^3/uL (1.6-8.6); Red Blood Cells 3.94 10^6/uL (4.5-5.90); Red Cell Distribution Width 14.1 % (11.8-14.3); White Blood Cell 16.7 10^3/uL (4.4-10.8)
[2023-04-04] MEDS ORDERED: OMNIPAQUE 12mg/ml 500ml ORAL SOLUTION PO ONE (09:20)
[2023-04-04 09:29] LABS: Lipase 31 U/L (12-53)
[2023-04-04] MEDS ORDERED: FUROSEMIDE 40 MG/4 ML VIAL IV ONE (10:00)
[2023-04-04] MEDS ORDERED: ASPirin 300 MG RECTAL SUPP PR ONE (10:00)
[2023-04-04 10:52] LABS: INR 1.19 (0.9-1.15); Prothrombin Time 12.4 sec (9.3-11.8)
[2023-04-04] MEDS ORDERED: DOCUSATE SOD 100 MG CAP PO PRN (12:00)
[2023-04-04] MEDS ORDERED: ONDANSETRON HCL 4 MG/2 ML VIAL IV PRN (12:00)
[2023-04-04] MEDS ORDERED: ACETAMINOPHEN 325 MG TAB PO PRN (12:00)
[2023-04-04] MEDS ORDERED: MAALOX PLUS or MAALOX 30 ML PO PRN (12:00)
[2023-04-04] MEDS ORDERED: MORPHINE SULFATE INJ 2 MG/ml SYRG IV PRN (12:00)
[2023-04-04] MEDS ORDERED: CIPROFLOXACIN 400MG/200ML 200 ML IV ONE (12:00)
[2023-04-04 13:28] LABS: Lactic Acid w/Reflex 2.9 mmol/L (0.4-2.0)
[2023-04-04] MEDS: SODIUM CHLOR 0.9% PF (SALINE LOCK) 10ML VIAL/SYR IV SCH ×2 (14:00→22:00)
[2023-04-04 14:25] VITALS: PULSE 70; RESP 26; O2SAT 96
[2023-04-04] MEDS ORDERED: SODIUM CHLORIDE 0.9% 500 ML IV ONE (14:45)
[2023-04-04] MEDS: metroNIDAZOLE 500MG/100ML 100 ML IV SCH ×2 (15:30→21:24)
[2023-04-04] MEDS ORDERED: ASPirin 325 MG TAB PO ONE (16:00)
[2023-04-04 16:49] VITALS: BP 130/60; PULSE 70; RESP 16; TEMP 99.5; O2SAT 98
[2023-04-04] MEDS ORDERED: FUROSEMIDE 20 MG/2 ML VIAL IV SCH (18:00)
[2023-04-04 18:34] VITALS: BP 130/60; PULSE 72; RESP 16; TEMP 98.5; O2SAT 98
[2023-04-04 20:00] VITALS: BP 130/70; PULSE 72; RESP 20; TEMP 36.9; O2SAT 96
[2023-04-04] MEDS: CIPROFLOXACIN 400MG/200ML 200 ML IV SCH (21:24)
[2023-04-04] MEDS: CARVEDILOL 3.125 MG TAB PO SCH (21:25)
[2023-04-04] MEDS: PANTOPRAZOLE 40 MG TAB PO SCH (21:25)
[2023-04-04] MEDS: APIXABAN 2.5 MG TAB PO SCH (21:25)
[2023-04-04 21:40] VITALS: BP 118/57; PULSE 70; RESP 19; TEMP 98.3; O2SAT 98
[2023-04-05] VITALS (7 sets, daily range): BP systolic 94–130; BP diastolic 46–70; PULSE 69–76; RESP 18–20; TEMP 36.9; O2SAT 92–98
[2023-04-05] MEDS: SODIUM CHLOR 0.9% PF (SALINE LOCK) 10ML VIAL/SYR IV SCH ×3 (06:00→22:00)
[2023-04-05 06:23] LABS: Calcium 9.2 mg/dL (8.7-10.4); Chloride 102 mmol/L (98-107); Potassium 3.8 mmol/L (3.5-5.1); Sodium 136 mmol/L (136-145)
[2023-04-05 06:24] LABS: Anion Gap 8 (5-15); Carbon Dioxide 26 mmol/L (20-30)
[2023-04-05 06:29] LABS: Glucose 104 mg/dL (74-106)
[2023-04-05 06:30] LABS: BUN/Creatinine Ratio 12.6 (10.0-20.0); Basophils # (auto) 0 10 ^3/uL (0-0.2); Blood Urea Nitrogen 24 mg/dL (9-23); Eosinophils # (auto) 0 10 ^3/uL (0-0.8); Eosinophils % (auto) 0.1 % (0.0-7.0); Hemoglobin 14.1 g/dL (13.5-17.5); Lymphocytes # (auto) 0.8 10 ^3/uL (0.4-5.4); Lymphocytes % (auto) 5.3 % (10.0-50.0); Magnesium 1.8 mg/dL (1.6-2.6); Neutrophils # (auto) 12.8 10 ^3/uL (1.6-8.6)
[2023-04-05 06:33] LABS: Basophils % (auto) 0.2 % (0.0-2.0); Hematocrit 42.1 % (41.0-53.0); Mean Corpuscular Hgb Conc. 33.4 g/dL (32.0-36.0); Mean Corpuscular Volume 113.8 fL (80.0-100.0); Monocytes # (auto) 1.1 10 ^3/uL (0-1.3); Monocytes % (auto) 7.4 % (0.0-12.0); White Blood Cell 14.7 10^3/uL (4.4-10.8)
[2023-04-05] MEDS: metroNIDAZOLE 500MG/100ML 100 ML IV SCH ×3 (06:37→21:54)
[2023-04-05] MEDS: CIPROFLOXACIN 400MG/200ML 200 ML IV SCH ×2 (10:23→21:54)
[2023-04-05] MEDS: ENOXAPARIN SOD 30 MG/0.3 ML SYRINGE SC SCH (10:24)
[2023-04-05] MEDS: ATORVASTATIN 20 MG TAB PO SCH (10:24)
[2023-04-05] MEDS: CARVEDILOL 3.125 MG TAB PO SCH ×2 (10:25→22:01)
[2023-04-05] MEDS: PANTOPRAZOLE 40 MG TAB PO SCH ×2 (10:25→21:54)
[2023-04-05] MEDS: TAMSULOSIN HYDROCHLORIDE 0.4 MG CAP PO SCH (10:25)
[2023-04-05] MEDS: APIXABAN 2.5 MG TAB PO SCH (10:25)
[2023-04-06] VITALS (7 sets, daily range): BP systolic 102–122; BP diastolic 51–60; PULSE 64–75; RESP 14–22; TEMP 97.3–98.8; O2SAT 92–99
[2023-04-06] MEDS: metroNIDAZOLE 500MG/100ML 100 ML IV SCH ×3 (05:47→21:56)
[2023-04-06] MEDS: SODIUM CHLOR 0.9% PF (SALINE LOCK) 10ML VIAL/SYR IV SCH ×3 (05:48→21:56)
[2023-04-06 06:23] LABS: Chloride 102 mmol/L (98-107); Potassium 3.7 mmol/L (3.5-5.1); Sodium 138 mmol/L (136-145)
[2023-04-06 06:24] LABS: Calcium 9.4 mg/dL (8.5-10.1)
[2023-04-06 06:28] LABS: Glucose 112 mg/dL (74-106)
[2023-04-06 06:29] LABS: BUN/Creatinine Ratio 17.4 (10.0-20.0)
[2023-04-06 06:30] LABS: Basophils # (auto) 0 10 ^3/uL (0-0.2); Basophils % (auto) 0.2 % (0.0-2.0); Eosinophils # (auto) 0.1 10 ^3/uL (0-0.8); Hemoglobin 13.6 g/dL (13.5-17.5); Monocytes # (auto) 0.8 10 ^3/uL (0-1.3)
[2023-04-06 06:33] LABS: Eosinophils % (auto) 0.5 % (0.0-7.0); Hematocrit 39.9 % (41.0-53.0); Lymphocytes # (auto) 0.6 10 ^3/uL (0.4-5.4); Lymphocytes % (auto) 5.7 % (10.0-50.0); Mean Corpuscular Hemoglobin 38.2 pg (28.0-32.0); Mean Corpuscular Hgb Conc. 34.2 g/dL (32.0-36.0); Mean Corpuscular Volume 111.7 fL (80.0-100.0); Monocytes % (auto) 7.2 % (0.0-12.0); Neutrophils # (auto) 9.8 10 ^3/uL (1.6-8.6); Neutrophils % (auto) 86.4 % (37.0-80.0); Nucleated Red Blood Cells % 0.1 %; Red Blood Cells 3.57 10^6/uL (4.5-5.90); Red Cell Distribution Width 13.7 % (11.8-14.3); White Blood Cell 11.3 10^3/uL (4.4-10.8)
[2023-04-06 07:06] LABS: Blood Urea Nitrogen 41 mg/dL (9-23)
[2023-04-06 07:21] LABS: Anion Gap 11 (5-15); Carbon Dioxide 25 mmol/L (20-30)
[2023-04-06] MEDS: TAMSULOSIN HYDROCHLORIDE 0.4 MG CAP PO SCH (09:43)
[2023-04-06] MEDS: ATORVASTATIN 20 MG TAB PO SCH (09:44)
[2023-04-06] MEDS: CARVEDILOL 3.125 MG TAB PO SCH ×2 (09:47→22:03)
[2023-04-06] MEDS: PANTOPRAZOLE 40 MG TAB PO SCH ×2 (09:48→22:03)
[2023-04-06] MEDS: CIPROFLOXACIN 400MG/200ML 200 ML IV SCH ×2 (09:48→23:24)
[2023-04-06] MEDS: ENOXAPARIN SOD 30 MG/0.3 ML SYRINGE SC SCH (09:49)
[2023-04-07 05:00] VITALS: BP 109/60; PULSE 75; RESP 20; TEMP 98; O2SAT 98
[2023-04-07] MEDS: SODIUM CHLOR 0.9% PF (SALINE LOCK) 10ML VIAL/SYR IV SCH ×3 (05:44→21:31)
[2023-04-07] MEDS: metroNIDAZOLE 500MG/100ML 100 ML IV SCH ×3 (05:44→22:52)
[2023-04-07 08:00] VITALS: BP_SYST 130; BP_SYST 96; BP_DIAS 55; BP_DIAS 82; PULSE 72; PULSE 90; RESP 16; RESP 20; TEMP 98.4; O2SAT 94; O2SAT 97
[2023-04-07 08:05] VITALS: BP 95/55; PULSE 72; RESP 20; TEMP 98.4
[2023-04-07] MEDS: ATORVASTATIN 20 MG TAB PO SCH (09:55)
[2023-04-07] MEDS: CIPROFLOXACIN 400MG/200ML 200 ML IV SCH ×2 (09:55→21:28)
[2023-04-07] MEDS: TAMSULOSIN HYDROCHLORIDE 0.4 MG CAP PO SCH (09:55)
[2023-04-07] MEDS: PANTOPRAZOLE 40 MG TAB PO SCH ×2 (09:55→21:29)
[2023-04-07] MEDS: ENOXAPARIN SOD 30 MG/0.3 ML SYRINGE SC SCH (09:59)
[2023-04-07] MEDS: CARVEDILOL 3.125 MG TAB PO SCH ×2 (10:05→21:38)
[2023-04-07 13:00] VITALS: BP 83/48; PULSE 90; RESP 18; TEMP 98.1; O2SAT 98
[2023-04-07] MEDS ORDERED: SODIUM CHLORIDE 0.9% 2,950 ML IV ONE (13:30)
[2023-04-07] MEDS ORDERED: SODIUM CHLORIDE 0.9% 250 ML IV ONE (13:45)
[2023-04-07 17:00] VITALS: BP 103/44; PULSE 74; RESP 22; TEMP 98.4; O2SAT 94
[2023-04-07 22:00] VITALS: BP 99/57; PULSE 72; RESP 24; TEMP 97.8; O2SAT 97
[2023-04-08] MEDS: HYDROcodone-ACET 5/325MG TAB PO PRN ×2 (03:47→17:43)
[2023-04-08 05:00] VITALS: BP 106/59; PULSE 78; RESP 20; TEMP 98.3; O2SAT 100
[2023-04-08] MEDS: SODIUM CHLOR 0.9% PF (SALINE LOCK) 10ML VIAL/SYR IV SCH ×3 (06:01→21:18)
[2023-04-08] MEDS: metroNIDAZOLE 500MG/100ML 100 ML IV SCH ×3 (06:02→22:54)
[2023-04-08 09:00] VITALS: BP 115/61; PULSE 73; RESP 16; TEMP 98.1; O2SAT 98
[2023-04-08] MEDS: CIPROFLOXACIN 400MG/200ML 200 ML IV SCH (10:00)
[2023-04-08] MEDS: TAMSULOSIN HYDROCHLORIDE 0.4 MG CAP PO SCH (11:02)
[2023-04-08] MEDS: APIXABAN 2.5 MG TAB PO SCH ×2 (11:03→21:17)
[2023-04-08] MEDS: ATORVASTATIN 20 MG TAB PO SCH (11:03)
[2023-04-08] MEDS: CARVEDILOL 3.125 MG TAB PO SCH (11:03)
[2023-04-08] MEDS: PANTOPRAZOLE 40 MG TAB PO SCH ×2 (11:03→21:17)
[2023-04-08 11:11] LABS: Urine WBC None Seen /hpf (0 - 3)
[2023-04-08] MEDS ORDERED: levoFLOXacin 500 MG TAB PO ONE (11:15)
[2023-04-08 11:24] LABS: Urine Bacteria NONE SEEN /hpf (None Seen); Urine Blood Negative /uL (Negative); Urine Clarity Clear (Clear); Urine Color Yellow (Yellow); Urine Hyaline Cast FEW /lpf (0 - 2); Urine Protein, UAD Negative (Negative); Urine Specific Gravity 1.018 (1.001-1.035); Urine Urobilinogen Normal (Negative); Urine pH 5.5 (5.0-8.0)
[2023-04-08 11:30] LABS: Sodium Urine < 10 mmol/L (40-220)
[2023-04-08 11:40] LABS: Creatinine, Urine 137.01 mg/dL (30.0-125.0)
[2023-04-08 13:00] VITALS: BP 104/59; PULSE 76; RESP 16; TEMP 97.8; O2SAT 99
[2023-04-08 13:21] LABS: Basophils # (auto) 0 10 ^3/uL (0-0.2); Eosinophils # (auto) 0.3 10 ^3/uL (0-0.8); Hematocrit 39.6 % (41.0-53.0); Hemoglobin 13.3 g/dL (13.5-17.5); Mean Corpuscular Hgb Conc. 33.6 g/dL (32.0-36.0); Red Blood Cells 3.54 10^6/uL (4.5-5.90)
[2023-04-08 13:22] LABS: Basophils % (auto) 0.3 % (0.0-2.0); Eosinophils % (auto) 3.6 % (0.0-7.0); Lymphocytes # (auto) 0.8 10 ^3/uL (0.4-5.4); Lymphocytes % (auto) 8.2 % (10.0-50.0); Mean Corpuscular Hemoglobin 37.6 pg (28.0-32.0); Monocytes % (auto) 10.9 % (0.0-12.0); Neutrophils # (auto) 7.3 10 ^3/uL (1.6-8.6); Nucleated Red Blood Cells % 0.1 %; Red Cell Distribution Width 14.2 % (11.8-14.3); White Blood Cell 9.5 10^3/uL (4.4-10.8)
[2023-04-08 13:42] LABS: Chloride 105 mmol/L (98-107); Potassium 3.5 mmol/L (3.5-5.1); Sodium 136 mmol/L (136-145)
[2023-04-08 13:43] LABS: Anion Gap 7 (5-15); Calcium 8.9 mg/dL (8.7-10.4); Carbon Dioxide 24 mmol/L (20-30)
[2023-04-08 13:48] LABS: BUN/Creatinine Ratio 16.9 (10.0-20.0); Blood Urea Nitrogen 30 mg/dL (9-23); Glucose 107 mg/dL (74-106)
[2023-04-08 17:00] VITALS: BP 96/54; PULSE 75; RESP 15; TEMP 98.3; O2SAT 92
[2023-04-08] MEDS ORDERED: SODIUM BICARBONATE 50ML VIAL 75 ML in D5W 5% 1,000 ML IV ONE (17:45)
[2023-04-08 20:00] VITALS: PULSE 88
[2023-04-08 22:47] VITALS: BP 126/70; PULSE 64; RESP 18; TEMP 97.4; O2SAT 98
[2023-04-09] MEDS: HYDROcodone-ACET 5/325MG TAB PO PRN (02:12)
[2023-04-09 04:45] VITALS: BP 110/59; PULSE 73; RESP 19; TEMP 98.2; O2SAT 96
[2023-04-09] MEDS: SODIUM CHLOR 0.9% PF (SALINE LOCK) 10ML VIAL/SYR IV SCH ×2 (05:54→14:00)
[2023-04-09] MEDS: metroNIDAZOLE 500MG/100ML 100 ML IV SCH ×2 (05:54→14:00)
[2023-04-09 06:25] LABS: Anion Gap 6 (5-15); Carbon Dioxide 26 mmol/L (20-30); Chloride 105 mmol/L (98-107); Potassium 3.4 mmol/L (3.5-5.1); Sodium 137 mmol/L (136-145)
[2023-04-09 06:27] LABS: Calcium 8.8 mg/dL (8.5-10.1)
[2023-04-09 06:28] LABS: Basophils # (auto) 0 10 ^3/uL (0-0.2); Basophils % (auto) 0.4 % (0.0-2.0); Eosinophils # (auto) 0.3 10 ^3/uL (0-0.8); Eosinophils % (auto) 3.2 % (0.0-7.0); Hematocrit 37.2 % (41.0-53.0); Hemoglobin 12.8 g/dL (13.5-17.5); Lymphocytes # (auto) 0.7 10 ^3/uL (0.4-5.4); Lymphocytes % (auto) 7.9 % (10.0-50.0); Mean Corpuscular Hemoglobin 37.6 pg (28.0-32.0); Mean Corpuscular Hgb Conc. 34.4 g/dL (32.0-36.0); Mean Corpuscular Volume 109.3 fL (80.0-100.0); Monocytes # (auto) 0.8 10 ^3/uL (0-1.3); Monocytes % (auto) 9.6 % (0.0-12.0); Neutrophils # (auto) 6.9 10 ^3/uL (1.6-8.6); Neutrophils % (auto) 78.9 % (37.0-80.0); Red Cell Distribution Width 13.9 % (11.8-14.3); White Blood Cell 8.8 10^3/uL (4.4-10.8)
[2023-04-09 06:31] LABS: Glucose 124 mg/dL (74-106)
[2023-04-09 06:32] LABS: BUN/Creatinine Ratio 21.1 (10.0-20.0); Blood Urea Nitrogen 32 mg/dL (9-23)
[2023-04-09 08:00] VITALS: PULSE 77
[2023-04-09 08:25] VITALS: BP 109/68; PULSE 89; RESP 22; TEMP 98.5; O2SAT 100
[2023-04-09] MEDS: TAMSULOSIN HYDROCHLORIDE 0.4 MG CAP PO SCH (09:09)
[2023-04-09] MEDS: ATORVASTATIN 20 MG TAB PO SCH (09:09)
[2023-04-09] MEDS: PANTOPRAZOLE 40 MG TAB PO SCH (09:09)
[2023-04-09] MEDS: APIXABAN 2.5 MG TAB PO SCH (09:09)
[2023-04-09] MEDS ORDERED: levoFLOXacin 500 MG TAB PO SCH (10:00)
[2023-04-09] MEDS ORDERED: POTASSIUM CHL 20 Meq TABLET PO ONE (11:45)
[2023-04-09 12:25] VITALS: BP 100/62; PULSE 76; RESP 20; TEMP 97.7; O2SAT 99
[2023-04-09 14:58] VITALS: BP 108/62; PULSE 79; RESP 17; TEMP 36.5; O2SAT 99
== END 2023-04-09 15:50 | disposition home health service (06) | DRG 871 ==
LOC: ER 07:33 → OVERFLOW 11:53 → EAST 16:00 → TELE-EAST 04-07 13:34
PROVIDERS: ADMIT Internal Medicine; ATTEND Internal Medicine
DX: A41.9 Sepsis, unspecified organism (principal); I50.23 Acute on chronic systolic (congestive) heart failure; K56.7 Ileus, unspecified; N17.9 Acute kidney failure, unspecified; I42.8 Other cardiomyopathies; I13.0 Hypertensive heart and chronic kidney disease with heart failure and stage 1 through stage 4 chronic kidney disease, or unspecified chronic kidney disease; K52.9 Noninfective gastroenteritis and colitis, unspecified; I48.91 Unspecified atrial fibrillation; E78.5 Hyperlipidemia, unspecified; F03.90 Unspecified dementia, unspecified severity, without behavioral disturbance, psychotic disturbance, mood disturbance, and anxiety; J44.9 Chronic obstructive pulmonary disease, unspecified; N18.9 Chronic kidney disease, unspecified; N40.0 Benign prostatic hyperplasia without lower urinary tract symptoms; Z80.42 Family history of malignant neoplasm of prostate; Z82.49 Family history of ischemic heart disease and other diseases of the circulatory system; Z95.0 Presence of cardiac pacemaker
CPT/HCPCS: 36415; 71045; 74176; 80048; 80053; 81001; 82150; 82570; 83605; 83690; 83735; 83880; 83935; 84156; 84300; 84484; 85025; 85610; 87086; 93005; 96361; 96365; 96375; G0378; J3490

== ENCOUNTER 2023-04-26 12:38 | Inpatient (IN) | payer MEDICARE, OTHER ==
[~2023-04-26] VITALS: Ht 182.9 cm; Wt 91.5 kg
[~2023-04-26 12:38] MED LIST changes: -ATOR-47 PO; -SACU1TAB PO
[2023-04-26 13:53] LABS: Basophils # (auto) 0 10 ^3/uL (0-0.2); Eosinophils # (auto) 0.1 10 ^3/uL (0-0.8); Eosinophils % (auto) 1.1 % (0.0-7.0); Lymphocytes # (auto) 1.5 10 ^3/uL (0.4-5.4); Monocytes # (auto) 0.7 10 ^3/uL (0-1.3); Nucleated Red Blood Cells % 0.1 %
[2023-04-26 13:55] LABS: Basophils % (auto) 0.4 % (0.0-2.0); Hematocrit 38.7 % (41.0-53.0); Hemoglobin 12.8 g/dL (13.5-17.5); Lymphocytes % (auto) 11.6 % (10.0-50.0); Mean Corpuscular Hemoglobin 36.3 pg (28.0-32.0); Mean Corpuscular Hgb Conc. 33.1 g/dL (32.0-36.0); Mean Corpuscular Volume 109.4 fL (80.0-100.0); Monocytes % (auto) 5.5 % (0.0-12.0); Neutrophils # (auto) 10.5 10 ^3/uL (1.6-8.6); Neutrophils % (auto) 81.4 % (37.0-80.0); Red Blood Cells 3.54 10^6/uL (4.5-5.90); Red Cell Distribution Width 14.2 % (11.8-14.3); White Blood Cell 12.9 10^3/uL (4.4-10.8)
[2023-04-26 14:09] LABS: Alanine Aminotransferase 11 U/L (7-40); Albumin 4.2 g/dL (3.2-4.8); Alkaline Phosphatase 88 U/L (46-116); Anion Gap 9 (5-15); Aspartate Aminotransferase 18 U/L (13-40); BUN/Creatinine Ratio 9.6 (10.0-20.0); Blood Urea Nitrogen 15 mg/dL (9-23); Carbon Dioxide 27 mmol/L (20-30); Chloride 103 mmol/L (98-107); Glucose 98 mg/dL (74-106); Potassium 4.5 mmol/L (3.5-5.1); Sodium 139 mmol/L (136-145)
[2023-04-26 14:10] LABS: Bilirubin, Total 1.2 mg/dL (0.2-1.0); Total Protein 7.6 g/dL (5.7-8.2)
[2023-04-26 14:31] LABS: Platelet Estimate Adequate
[2023-04-26 14:36] LABS: Anisocytosis Slight; Macrocytosis Slight
[2023-04-26] MEDS ORDERED: IPRATROPIUM BROM 0.5 MG/2.5ML INH SOL NEB PRN (18:00)
[2023-04-26] MEDS ORDERED: ALBUTEROL MEDNEB 2.5 mg/3ml NEB NEB PRN (18:00)
[2023-04-26] MEDS ORDERED: DOCUSATE SOD 100 MG CAP PO PRN (18:00)
[2023-04-26] MEDS ORDERED: ONDANSETRON HCL 4 MG/2 ML VIAL IV PRN (18:00)
[2023-04-26] MEDS ORDERED: hydrALAZINE HCL 20 MG/ML VL IV PRN (18:00)
[2023-04-26 18:23] VITALS: BP 133/64; PULSE 58; RESP 18; O2SAT 98
[2023-04-26 18:30] VITALS: PULSE 88; RESP 18; O2SAT 100
[2023-04-26 20:15] VITALS: PULSE 80; RESP 20; O2SAT 98
[2023-04-26 20:21] LABS: INR 1.14 (0.9-1.15); Partial Thromboplastin Time 30.1 SEC (24.5-34.5); Prothrombin Time 11.9 sec (9.3-11.8)
[2023-04-26] MEDS: MORPHINE SULFATE INJ 2 MG/ml SYRG IV PRN (20:38)
[2023-04-26] MEDS: PIPERACILLIN-TAZOB 3.375GM 100 ML IV SCH (20:39)
[2023-04-26] MEDS: SODIUM CHLORIDE 0.9% 1,000 ML IV SCH (20:39)
[2023-04-27] VITALS (9 sets, daily range): BP systolic 121–143; BP diastolic 56–68; PULSE 41–84; RESP 18–19; TEMP 98.1–99.1; O2SAT 96–100
[2023-04-27] MEDS: PIPERACILLIN-TAZOB 3.375GM 100 ML IV SCH ×4 (01:54→23:59)
[2023-04-27] MEDS: SODIUM CHLORIDE 0.9% 1,000 ML IV SCH ×2 (02:20→15:41)
[2023-04-27 09:52] LABS: Basophils # (auto) 0 10 ^3/uL (0-0.2); Basophils % (auto) 0.3 % (0.0-2.0); Eosinophils # (auto) 0.1 10 ^3/uL (0-0.8); Eosinophils % (auto) 1.9 % (0.0-7.0); Hematocrit 34.9 % (41.0-53.0); Hemoglobin 11.6 g/dL (13.5-17.5); Lymphocytes # (auto) 0.8 10 ^3/uL (0.4-5.4); Lymphocytes % (auto) 12.1 % (10.0-50.0); Mean Corpuscular Hemoglobin 36.5 pg (28.0-32.0); Mean Corpuscular Hgb Conc. 33.2 g/dL (32.0-36.0); Mean Corpuscular Volume 109.9 fL (80.0-100.0); Monocytes # (auto) 0.6 10 ^3/uL (0-1.3); Neutrophils # (auto) 5.4 10 ^3/uL (1.6-8.6); Neutrophils % (auto) 77.7 % (37.0-80.0); Red Blood Cells 3.17 10^6/uL (4.5-5.90); Red Cell Distribution Width 14.1 % (11.8-14.3); White Blood Cell 6.9 10^3/uL (4.4-10.8)
[2023-04-27] MEDS ORDERED: ENOXAPARIN SOD 40 MG/0.4 ML SYRINGE SC SCH (10:00)
[2023-04-27 10:11] LABS: Albumin 3.5 g/dL (3.2-4.8); Alkaline Phosphatase 69 U/L (46-116); Anion Gap 4 (5-15); Aspartate Aminotransferase 12 U/L (13-40); BUN/Creatinine Ratio 10.9 (10.0-20.0); Blood Urea Nitrogen 15 mg/dL (9-23); Carbon Dioxide 29 mmol/L (20-30); Chloride 107 mmol/L (98-107); Glucose 86 mg/dL (74-106); Potassium 4.3 mmol/L (3.5-5.1); Sodium 140 mmol/L (136-145)
[2023-04-27 10:12] LABS: Alanine Aminotransferase < 9 U/L (7-40); Bilirubin, Total 1.3 mg/dL (0.2-1.0); Total Protein 6.2 g/dL (5.7-8.2)
[2023-04-27] MEDS: PANTOPRAZOLE 40 MG/10 ML VIAL INJ IV SCH (10:13)
[2023-04-27] MEDS ORDERED: GASTROGRAFIN 120 ML SOL ONE (11:11)
[2023-04-27] MEDS ORDERED: hydrALAZINE HCL 20 MG/ML VL IV PRN (11:30)
[2023-04-27] MEDS: ENOXAPARIN SOD 100 MG/1 ML SYRINGE SC SCH (21:43)
[2023-04-27] MEDS: MORPHINE SULFATE INJ 2 MG/ml SYRG IV PRN (22:47)
[2023-04-28] VITALS (7 sets, daily range): BP systolic 117–133; BP diastolic 56–68; PULSE 50–87; RESP 16–19; TEMP 97.5–98.2; O2SAT 93–100
[2023-04-28] MEDS: SODIUM CHLORIDE 0.9% 1,000 ML IV SCH ×2 (01:05→14:25)
[2023-04-28] MEDS: PIPERACILLIN-TAZOB 3.375GM 100 ML IV SCH ×3 (06:23→17:33)
[2023-04-28 06:41] LABS: Basophils # (auto) 0 10 ^3/uL (0-0.2); Basophils % (auto) 0.4 % (0.0-2.0); Eosinophils # (auto) 0.1 10 ^3/uL (0-0.8); Eosinophils % (auto) 1.5 % (0.0-7.0); Hematocrit 35.6 % (41.0-53.0); Hemoglobin 11.7 g/dL (13.5-17.5); Lymphocytes # (auto) 0.7 10 ^3/uL (0.4-5.4); Mean Corpuscular Hemoglobin 35.5 pg (28.0-32.0); Mean Corpuscular Hgb Conc. 32.9 g/dL (32.0-36.0); Mean Corpuscular Volume 108.1 fL (80.0-100.0); Monocytes # (auto) 0.5 10 ^3/uL (0-1.3); Monocytes % (auto) 6.7 % (0.0-12.0); Neutrophils # (auto) 5.6 10 ^3/uL (1.6-8.6); Neutrophils % (auto) 81.4 % (37.0-80.0); White Blood Cell 6.9 10^3/uL (4.4-10.8)
[2023-04-28 07:13] LABS: Anion Gap 7 (5-15); Carbon Dioxide 28 mmol/L (20-30); Chloride 107 mmol/L (98-107); Potassium 3.8 mmol/L (3.5-5.1); Sodium 142 mmol/L (136-145)
[2023-04-28 07:14] LABS: Calcium 8.9 mg/dL (8.7-10.4)
[2023-04-28 07:19] LABS: BUN/Creatinine Ratio 9.5 (10.0-20.0); Blood Urea Nitrogen 13 mg/dL (9-23); Glucose 85 mg/dL (74-106)
[2023-04-28 08:27] LABS: Creatinine, Urine 203.56 mg/dL (30.0-125.0)
[2023-04-28 08:44] LABS: Urine Bacteria NONE SEEN /hpf (None Seen); Urine Blood Negative /uL (Negative); Urine Clarity Clear (Clear); Urine Color Yellow (Yellow); Urine Protein, UAD TRACE (Negative); Urine Specific Gravity 1.028 (1.001-1.035); Urine Urobilinogen Normal (Negative); Urine WBC 3 /hpf (0 - 3); Urine pH 5.5 (5.0-8.0)
[2023-04-28] MEDS ORDERED: MAGNESIUM SULFATE 1GM/100ML 100 ML IV ONE (09:00)
[2023-04-28] MEDS: ENOXAPARIN SOD 100 MG/1 ML SYRINGE SC SCH ×2 (09:52→21:58)
[2023-04-28] MEDS: PANTOPRAZOLE 40 MG/10 ML VIAL INJ IV SCH (09:52)
[2023-04-28] MEDS: FUROSEMIDE 20 MG/2 ML VIAL IV SCH (09:53)
[2023-04-28] MEDS: MUPIROCIN 2% OINT 15gm or 22gm FOR MRSA NARES EACHNOSTRI SCH (21:47)
[2023-04-29] MEDS: PIPERACILLIN-TAZOB 3.375GM 100 ML IV SCH ×4 (00:38→18:21)
[2023-04-29 05:00] VITALS: BP 148/69; PULSE 79; RESP 19; TEMP 98.3; O2SAT 98
[2023-04-29] MEDS: SODIUM CHLORIDE 0.9% 1,000 ML IV SCH ×2 (05:19→17:05)
[2023-04-29 08:00] VITALS: BP 144/49; PULSE 72; PULSE 88; RESP 16; TEMP 97.9; O2SAT 100
[2023-04-29 09:00] VITALS: BP 144/49; RESP 16; TEMP 97.9; O2SAT 100
[2023-04-29] MEDS: MUPIROCIN 2% OINT 15gm or 22gm FOR MRSA NARES EACHNOSTRI SCH ×2 (10:00→22:00)
[2023-04-29] MEDS: ENOXAPARIN SOD 100 MG/1 ML SYRINGE SC SCH ×2 (10:28→22:00)
[2023-04-29] MEDS: PANTOPRAZOLE 40 MG/10 ML VIAL INJ IV SCH (10:28)
[2023-04-29] MEDS: FUROSEMIDE 20 MG/2 ML VIAL IV SCH (10:28)
[2023-04-29] MEDS: MORPHINE SULFATE INJ 2 MG/ml SYRG IV PRN (10:48)
[2023-04-29 17:00] VITALS: BP 136/63; PULSE 76; RESP 16; TEMP 97.9; O2SAT 92
[2023-04-29 20:00] VITALS: BP 144/49; PULSE 72; PULSE 77; PULSE 89; RESP 16; RESP 17; TEMP 97.9; O2SAT 92
[2023-04-29 23:56] VITALS: BP 116/56; PULSE 77; RESP 17; TEMP 98.6; O2SAT 92
[2023-04-30] MEDS: PIPERACILLIN-TAZOB 3.375GM 100 ML IV SCH ×2 (01:01→05:24)
[2023-04-30 04:52] VITALS: BP 119/55; PULSE 77; RESP 19; TEMP 98.2; O2SAT 98
[2023-04-30] MEDS: SODIUM CHLORIDE 0.9% 1,000 ML IV SCH (06:25)
[2023-04-30 08:00] VITALS: PULSE 55; PULSE 81; RESP 18; O2SAT 97
[2023-04-30 09:00] VITALS: BP 134/62; PULSE 55; RESP 18; TEMP 99.1; O2SAT 97
[2023-04-30] MEDS: FUROSEMIDE 20 MG/2 ML VIAL IV SCH (09:23)
[2023-04-30] MEDS: ENOXAPARIN SOD 100 MG/1 ML SYRINGE SC SCH (09:23)
[2023-04-30] MEDS: MUPIROCIN 2% OINT 15gm or 22gm FOR MRSA NARES EACHNOSTRI SCH (10:00)
[2023-04-30] MEDS: PANTOPRAZOLE 40 MG/10 ML VIAL INJ IV SCH (10:38)
[2023-04-30 11:39] VITALS: BP 134/62; PULSE 55; RESP 18; TEMP 98.1; O2SAT 97
[2023-04-30 12:08] VITALS: BP 118/62; PULSE 40; RESP 16; TEMP 98.8; O2SAT 97
== END 2023-04-30 12:45 | disposition home health service (06) | DRG 388 ==
LOC: ER 12:38 → TELE 17:55 → TELE-CENTR 04-27 03:01
PROVIDERS: ADMIT Nurse Practitioner Family; ATTEND Nurse Practitioner Acute Care
DX: K56.609 Unspecified intestinal obstruction, unspecified as to partial versus complete obstruction (principal); I50.23 Acute on chronic systolic (congestive) heart failure; N17.0 Acute kidney failure with tubular necrosis; I13.0 Hypertensive heart and chronic kidney disease with heart failure and stage 1 through stage 4 chronic kidney disease, or unspecified chronic kidney disease; I48.20 Chronic atrial fibrillation, unspecified; I42.8 Other cardiomyopathies; K42.0 Umbilical hernia with obstruction, without gangrene; R65.10 Systemic inflammatory response syndrome (SIRS) of non-infectious origin without acute organ dysfunction; F03.90 Unspecified dementia, unspecified severity, without behavioral disturbance, psychotic disturbance, mood disturbance, and anxiety; D63.8 Anemia in other chronic diseases classified elsewhere; N18.30 Chronic kidney disease, stage 3 unspecified; E78.5 Hyperlipidemia, unspecified; J44.9 Chronic obstructive pulmonary disease, unspecified; E86.0 Dehydration; I27.20 Pulmonary hypertension, unspecified; I07.1 Rheumatic tricuspid insufficiency; E66.9 Obesity, unspecified; K57.30 Diverticulosis of large intestine without perforation or abscess without bleeding; Z95.0 Presence of cardiac pacemaker; Z82.49 Family history of ischemic heart disease and other diseases of the circulatory system; Z80.42 Family history of malignant neoplasm of prostate; Z86.73 Personal history of transient ischemic attack (TIA), and cerebral infarction without residual deficits; Z68.27 Body mass index [BMI] 27.0-27.9, adult
CPT/HCPCS: 36415; 71045; 74176; 74250; 80048; 80053; 81001; 82570; 83735; 83880; 84300; 85025; 85610; 85730; 86850; 86900; 86901; 87081; 93306; 97110; 97163; 97530; C9113; G0378; J2405; J2543

== ENCOUNTER 2023-05-04 07:50 | Inpatient (IN) | payer MEDICARE, OTHER ==
[~2023-05-04] VITALS: Ht 182.9 cm; Wt 96.9 kg
[2023-05-04 08:48] LABS: Basophils # (auto) 0 10 ^3/uL (0-0.2); Eosinophils # (auto) 0.1 10 ^3/uL (0-0.8); Lymphocytes # (auto) 1.3 10 ^3/uL (0.4-5.4)
[2023-05-04 08:50] LABS: Basophils % (auto) 0.4 % (0.0-2.0); Eosinophils % (auto) 1.1 % (0.0-7.0); Hematocrit 37.9 % (41.0-53.0); Hemoglobin 12.6 g/dL (13.5-17.5); Lymphocytes % (auto) 13.3 % (10.0-50.0); Mean Corpuscular Hemoglobin 35.2 pg (28.0-32.0); Mean Corpuscular Hgb Conc. 33.3 g/dL (32.0-36.0); Mean Corpuscular Volume 105.5 fL (80.0-100.0); Monocytes % (auto) 10.3 % (0.0-12.0); Neutrophils # (auto) 7.3 10 ^3/uL (1.6-8.6); Neutrophils % (auto) 74.9 % (37.0-80.0); Red Blood Cells 3.59 10^6/uL (4.5-5.90); Red Cell Distribution Width 14.2 % (11.8-14.3); White Blood Cell 9.8 10^3/uL (4.4-10.8)
[2023-05-04 08:59] LABS: Chloride 103 mmol/L (98-107); Potassium 3.7 mmol/L (3.5-5.1); Sodium 140 mmol/L (136-145)
[2023-05-04 09:02] LABS: Anion Gap 7 (5-15); Carbon Dioxide 30 mmol/L (20-30)
[2023-05-04 09:03] LABS: Calcium 9.6 mg/dL (8.7-10.4)
[2023-05-04 09:07] LABS: Glucose 124 mg/dL (74-106)
[2023-05-04 09:08] LABS: Alkaline Phosphatase 106 U/L (46-116); Blood Urea Nitrogen 29 mg/dL (9-23); Lipase 28 U/L (12-53)
[2023-05-04 09:09] LABS: Alanine Aminotransferase 19 U/L (7-40); Albumin 3.8 g/dL (3.2-4.8); Aspartate Aminotransferase 18 U/L (13-40)
[2023-05-04 09:10] LABS: Total Protein 6.8 g/dL (5.7-8.2)
[2023-05-04 09:11] LABS: INR 1.09 (0.9-1.15); Partial Thromboplastin Time 28.7 SEC (24.5-34.5); Prothrombin Time 11.4 sec (9.3-11.8)
[2023-05-04 09:19] VITALS: PULSE 60; RESP 18; O2SAT 94
[2023-05-04] MEDS ORDERED: HYDROmorphone HCL 2 MG/ML VL/or syr IV ONE (15:30)
[2023-05-04] MEDS ORDERED: ONDANSETRON HCL 4 MG/2 ML VIAL IV ONE (15:30)
[2023-05-04] MEDS ORDERED: MAGNESIUM HYDROXIDE 2400 MG PO SCH (18:15)
[2023-05-04] MEDS ORDERED: ONDANSETRON HCL 4 MG/2 ML VIAL IV PRN (18:15)
[2023-05-04] MEDS ORDERED: ALBUTEROL MEDNEB 2.5 mg/3ml NEB NEB PRN (18:15)
[2023-05-04] MEDS ORDERED: ALUM & MAG HYDROX-SIMETH LIQ(MAALOX) 30 ML PO PRN (18:15)
[2023-05-04 18:35] VITALS: BP 137/86; PULSE 74; RESP 18; TEMP 96.6; O2SAT 95
[2023-05-04 19:00] VITALS: O2SAT 96
[2023-05-04 19:20] VITALS: PULSE 70; RESP 23; O2SAT 100
[2023-05-04] MEDS: PANTOPRAZOLE 40 MG TAB PO SCH (22:00)
[2023-05-04] MEDS: APIXABAN 2.5 MG TAB PO SCH (22:00)
[2023-05-04] MEDS: CARVEDILOL 3.125 MG TAB PO SCH (22:01)
[2023-05-04] MEDS ORDERED: HYDROcodone-ACET 5/325MG TAB PO PRN (22:45)
[2023-05-05] VITALS (7 sets, daily range): BP systolic 110–141; BP diastolic 51–87; PULSE 68–86; RESP 18–23; TEMP 97.3–98.5; O2SAT 91–100
[2023-05-05 08:49] LABS: Basophils # (auto) 0 10 ^3/uL (0-0.2); Eosinophils # (auto) 0.2 10 ^3/uL (0-0.8); Hemoglobin 11.2 g/dL (13.5-17.5); Mean Corpuscular Volume 105.3 fL (80.0-100.0); Monocytes # (auto) 0.5 10 ^3/uL (0-1.3); Neutrophils # (auto) 3.7 10 ^3/uL (1.6-8.6); Nucleated Red Blood Cells % 0.1 %; Red Cell Distribution Width 13.8 % (11.8-14.3); White Blood Cell 5.8 10^3/uL (4.4-10.8)
[2023-05-05 08:51] LABS: Basophils % (auto) 0.6 % (0.0-2.0); Eosinophils % (auto) 3.3 % (0.0-7.0); Lymphocytes # (auto) 1.4 10 ^3/uL (0.4-5.4); Lymphocytes % (auto) 23.7 % (10.0-50.0); Mean Corpuscular Hemoglobin 34.8 pg (28.0-32.0); Mean Corpuscular Hgb Conc. 33.1 g/dL (32.0-36.0); Monocytes % (auto) 8.8 % (0.0-12.0); Neutrophils % (auto) 63.6 % (37.0-80.0); Red Blood Cells 3.23 10^6/uL (4.5-5.90)
[2023-05-05 09:12] LABS: Alanine Aminotransferase 17 U/L (7-40); Albumin 3.4 g/dL (3.2-4.8); Alkaline Phosphatase 86 U/L (46-116); Anion Gap 4 (5-15); Aspartate Aminotransferase 14 U/L (13-40); BUN/Creatinine Ratio 17.4 (10.0-20.0); Blood Urea Nitrogen 24 mg/dL (9-23); Calcium 9.4 mg/dL (8.5-10.1); Carbon Dioxide 32 mmol/L (20-30); Chloride 106 mmol/L (98-107); Glucose 93 mg/dL (74-106); Potassium 3.5 mmol/L (3.5-5.1); Sodium 142 mmol/L (136-145)
[2023-05-05 09:13] LABS: Bilirubin, Total 0.7 mg/dL (0.2-1.0); Total Protein 6.3 g/dL (5.7-8.2)
[2023-05-05] MEDS ORDERED: FUROSEMIDE 40 MG TAB PO SCH (10:00)
[2023-05-05] MEDS ORDERED: EMPAGLIFLOZIN 10 MG TAB PO SCH (10:00)
[2023-05-05] MEDS: APIXABAN 2.5 MG TAB PO SCH ×2 (10:17→22:06)
[2023-05-05] MEDS: PANTOPRAZOLE 40 MG TAB PO SCH ×2 (10:17→22:06)
[2023-05-05] MEDS: ATORVASTATIN 20 MG TAB PO SCH (10:17)
[2023-05-05] MEDS: TAMSULOSIN HYDROCHLORIDE 0.4 MG CAP PO SCH (10:17)
[2023-05-05] MEDS: CARVEDILOL 3.125 MG TAB PO SCH ×2 (10:18→22:06)
[2023-05-05] MEDS: MUPIROCIN 2% OINT 15gm or 22gm FOR MRSA NARES EACHNOSTRI SCH (22:06)
[2023-05-06] VITALS (7 sets, daily range): BP systolic 107–125; BP diastolic 55–64; PULSE 70–74; RESP 14–20; TEMP 98–98.5; O2SAT 94–99
[2023-05-06 06:34] LABS: Basophils # (auto) 0 10 ^3/uL (0-0.2); Eosinophils # (auto) 0.2 10 ^3/uL (0-0.8); Hemoglobin 10.9 g/dL (13.5-17.5); Nucleated Red Blood Cells % 0.1 %
[2023-05-06 06:35] LABS: Basophils % (auto) 0.4 % (0.0-2.0); Eosinophils % (auto) 2.8 % (0.0-7.0); Lymphocytes # (auto) 1.2 10 ^3/uL (0.4-5.4); Lymphocytes % (auto) 18.2 % (10.0-50.0); Mean Corpuscular Hemoglobin 34.8 pg (28.0-32.0); Mean Corpuscular Volume 105.4 fL (80.0-100.0); Monocytes # (auto) 0.5 10 ^3/uL (0-1.3); Monocytes % (auto) 8.3 % (0.0-12.0); Neutrophils # (auto) 4.5 10 ^3/uL (1.6-8.6); Neutrophils % (auto) 70.3 % (37.0-80.0); Red Blood Cells 3.13 10^6/uL (4.5-5.90); Red Cell Distribution Width 13.9 % (11.8-14.3); White Blood Cell 6.5 10^3/uL (4.4-10.8)
[2023-05-06] MEDS ORDERED: POTASSIUM EFFERVESENT TAB 25 MEQ PO ONE (09:15)
[2023-05-06] MEDS: PANTOPRAZOLE 40 MG TAB PO SCH ×2 (09:30→21:22)
[2023-05-06] MEDS: CARVEDILOL 3.125 MG TAB PO SCH ×2 (09:31→21:22)
[2023-05-06] MEDS: ACETAMINOPHEN 325 MG TAB PO PRN ×2 (09:31→23:25)
[2023-05-06] MEDS: ATORVASTATIN 20 MG TAB PO SCH (09:31)
[2023-05-06] MEDS: TAMSULOSIN HYDROCHLORIDE 0.4 MG CAP PO SCH (09:31)
[2023-05-06] MEDS: APIXABAN 2.5 MG TAB PO SCH ×2 (09:31→21:22)
[2023-05-06] MEDS: MUPIROCIN 2% OINT 15gm or 22gm FOR MRSA NARES EACHNOSTRI SCH ×2 (09:32→21:23)
[2023-05-07 04:49] VITALS: BP 118/67; PULSE 76; RESP 16; TEMP 98.3; O2SAT 98
[2023-05-07] MEDS: EMPAGLIFLOZIN 10 MG TAB PO SCH (06:12)
[2023-05-07 06:40] LABS: Basophils # (auto) 0 10 ^3/uL (0-0.2); Basophils % (auto) 0.5 % (0.0-2.0); Eosinophils # (auto) 0.2 10 ^3/uL (0-0.8); Hemoglobin 11.3 g/dL (13.5-17.5); Lymphocytes # (auto) 1.1 10 ^3/uL (0.4-5.4); Mean Corpuscular Hemoglobin 35.2 pg (28.0-32.0); Monocytes # (auto) 0.7 10 ^3/uL (0-1.3)
[2023-05-07] MEDS ORDERED: OMNIPAQUE 12mg/ml 500ml ORAL SOLUTION PO ONE (06:43)
[2023-05-07] MEDS ORDERED: IOHEXOL 300 MG/ML 100ML BOTTLE IJ ONE (06:43)
[2023-05-07 06:45] LABS: Eosinophils % (auto) 2.7 % (0.0-7.0); Hematocrit 33.8 % (41.0-53.0); Lymphocytes % (auto) 16.2 % (10.0-50.0); Mean Corpuscular Hgb Conc. 33.5 g/dL (32.0-36.0); Monocytes % (auto) 10.2 % (0.0-12.0); Neutrophils # (auto) 4.7 10 ^3/uL (1.6-8.6); Neutrophils % (auto) 70.4 % (37.0-80.0); Nucleated Red Blood Cells % 0.1 %; Red Blood Cells 3.21 10^6/uL (4.5-5.90); Red Cell Distribution Width 13.9 % (11.8-14.3); White Blood Cell 6.7 10^3/uL (4.4-10.8)
[2023-05-07 06:50] LABS: Anion Gap 5 (5-15); Calcium 8.6 mg/dL (8.7-10.4); Carbon Dioxide 28 mmol/L (20-30); Chloride 104 mmol/L (98-107); Potassium 3.6 mmol/L (3.5-5.1); Sodium 137 mmol/L (136-145)
[2023-05-07 06:56] LABS: BUN/Creatinine Ratio 10.3 (10.0-20.0); Blood Urea Nitrogen 12 mg/dL (9-23); Glucose 84 mg/dL (74-106)
[2023-05-07 08:00] VITALS: PULSE 59; RESP 16; O2SAT 96
[2023-05-07] MEDS: ATORVASTATIN 20 MG TAB PO SCH (08:58)
[2023-05-07] MEDS: TAMSULOSIN HYDROCHLORIDE 0.4 MG CAP PO SCH (08:58)
[2023-05-07] MEDS: PANTOPRAZOLE 40 MG TAB PO SCH ×3 (08:58→22:45)
[2023-05-07 09:00] VITALS: BP 136/68; PULSE 59; RESP 16; O2SAT 96
[2023-05-07] MEDS: FUROSEMIDE 40 MG TAB PO SCH (09:00)
[2023-05-07] MEDS: APIXABAN 2.5 MG TAB PO SCH ×2 (09:02→22:47)
[2023-05-07] MEDS: MUPIROCIN 2% OINT 15gm or 22gm FOR MRSA NARES EACHNOSTRI SCH ×2 (09:02→22:53)
[2023-05-07] MEDS: CARVEDILOL 3.125 MG TAB PO SCH ×2 (09:02→22:47)
[2023-05-07 13:00] VITALS: BP 147/73; PULSE 67; RESP 16; TEMP 98.4; O2SAT 96
[2023-05-07 17:00] VITALS: BP 140/60; PULSE 78; RESP 18; TEMP 98.2; O2SAT 95
[2023-05-07 20:00] VITALS: PULSE 68; RESP 18; O2SAT 96
[2023-05-07] MEDS: ACETAMINOPHEN 325 MG TAB PO PRN (22:47)
[2023-05-08 05:00] VITALS: BP 111/54; PULSE 73; RESP 18; TEMP 97.2; O2SAT 97
[2023-05-08 06:50] LABS: Anion Gap 6 (5-15); Carbon Dioxide 28 mmol/L (20-30); Chloride 102 mmol/L (98-107); Potassium 3.5 mmol/L (3.5-5.1); Sodium 136 mmol/L (136-145)
[2023-05-08 06:51] LABS: Basophils # (auto) 0 10 ^3/uL (0-0.2); Calcium 8.7 mg/dL (8.7-10.4); Eosinophils # (auto) 0.2 10 ^3/uL (0-0.8); Monocytes # (auto) 0.7 10 ^3/uL (0-1.3); Neutrophils # (auto) 4.5 10 ^3/uL (1.6-8.6); Nucleated Red Blood Cells % 0.1 %
[2023-05-08 06:56] LABS: Blood Urea Nitrogen 11 mg/dL (9-23); Glucose 85 mg/dL (74-106)
[2023-05-08] MEDS: EMPAGLIFLOZIN 10 MG TAB PO SCH (07:00)
[2023-05-08 07:20] LABS: Basophils % (auto) 0.4 % (0.0-2.0); Eosinophils % (auto) 2.6 % (0.0-7.0); Lymphocytes % (auto) 15.6 % (10.0-50.0); Mean Corpuscular Hemoglobin 34.8 pg (28.0-32.0); Mean Corpuscular Hgb Conc. 33.4 g/dL (32.0-36.0); Mean Corpuscular Volume 104.3 fL (80.0-100.0); Monocytes % (auto) 10.8 % (0.0-12.0); Neutrophils % (auto) 70.6 % (37.0-80.0); Red Blood Cells 3.45 10^6/uL (4.5-5.90); Red Cell Distribution Width 13.8 % (11.8-14.3); White Blood Cell 6.3 10^3/uL (4.4-10.8)
[2023-05-08 08:00] VITALS: BP 143/60; PULSE 75; RESP 17; TEMP 98.3; O2SAT 97
[2023-05-08] MEDS: ATORVASTATIN 20 MG TAB PO SCH (08:31)
[2023-05-08] MEDS: TAMSULOSIN HYDROCHLORIDE 0.4 MG CAP PO SCH (08:32)
[2023-05-08 09:00] VITALS: BP 143/60; PULSE 75; RESP 17; TEMP 98.3; O2SAT 97
[2023-05-08] MEDS: CARVEDILOL 3.125 MG TAB PO SCH ×2 (10:05→22:36)
[2023-05-08] MEDS: FUROSEMIDE 40 MG TAB PO SCH (10:05)
[2023-05-08] MEDS: MUPIROCIN 2% OINT 15gm or 22gm FOR MRSA NARES EACHNOSTRI SCH ×2 (10:06→22:48)
[2023-05-08] MEDS: traMADol HCL 50 MG TAB PO PRN ×2 (10:06→22:35)
[2023-05-08 10:44] LABS: Urine Bacteria NONE SEEN /hpf (None Seen); Urine Blood Negative /uL (Negative); Urine Clarity Clear (Clear); Urine Color Yellow (Yellow); Urine Protein, UAD TRACE (Negative); Urine Urobilinogen Normal (Negative); Urine WBC 3 /hpf (0 - 3); Urine pH 6.5 (5.0-8.0)
[2023-05-08 11:03] LABS: Urine Specific Gravity > 1.050 (1.001-1.035)
[2023-05-08 13:00] VITALS: BP 123/72; PULSE 72; RESP 17; TEMP 98.2; O2SAT 98
[2023-05-08] MEDS: metroNIDAZOLE 500MG/100ML 100 ML IV SCH ×2 (15:43→22:39)
[2023-05-08 20:00] VITALS: PULSE 74; RESP 17; O2SAT 92
[2023-05-08 22:00] VITALS: BP 104/51; PULSE 74; RESP 17; TEMP 97.5; O2SAT 92
[2023-05-08] MEDS: PANTOPRAZOLE 40 MG TAB PO SCH (22:35)
[2023-05-09 05:00] VITALS: BP 123/52; PULSE 76; RESP 17; TEMP 97.5; O2SAT 92
[2023-05-09] MEDS: metroNIDAZOLE 500MG/100ML 100 ML IV SCH ×2 (06:20→14:00)
[2023-05-09] MEDS: EMPAGLIFLOZIN 10 MG TAB PO SCH (06:24)
[2023-05-09 09:00] VITALS: BP 120/59; PULSE 77; RESP 20; TEMP 98.3; O2SAT 92
[2023-05-09] MEDS ORDERED: cefTRIAXone 1GM/50ML D5W 50 ML IV SCH (09:00)
[2023-05-09] MEDS: FUROSEMIDE 40 MG TAB PO SCH (10:00)
[2023-05-09] MEDS: ATORVASTATIN 20 MG TAB PO SCH (10:00)
[2023-05-09] MEDS: PANTOPRAZOLE 40 MG TAB PO SCH (10:00)
[2023-05-09] MEDS: MUPIROCIN 2% OINT 15gm or 22gm FOR MRSA NARES EACHNOSTRI SCH (10:00)
[2023-05-09] MEDS ORDERED: MUPIROCIN 2% OINT 15gm or 22gm FOR MRSA NARES EACHNOSTRI SCH (10:00)
[2023-05-09] MEDS: TAMSULOSIN HYDROCHLORIDE 0.4 MG CAP PO SCH (10:00)
[2023-05-09] MEDS: CARVEDILOL 3.125 MG TAB PO SCH (10:00)
[2023-05-09 10:30] VITALS: BP 123/46; PULSE 75; RESP 19; TEMP 98.3; O2SAT 96
[2023-05-09 12:59] VITALS: BP 118/65; PULSE 78; RESP 18; TEMP 98.7; O2SAT 96
[2023-05-09 16:10] VITALS: BP 155/47; PULSE 67; TEMP 37.1
[2023-05-09 17:02] VITALS: BP 145/72; PULSE 81; RESP 20; TEMP 98.3; O2SAT 96
== END 2023-05-09 17:09 | disposition home or self-care (01) | DRG 444 ==
LOC: ER 07:50 → OVERFLOW 18:15 → CENTRAL 05-05 04:48
PROVIDERS: ADMIT Internal Medicine; ATTEND Student in an Organized Health Care Education/Training Program
DX: K81.0 Acute cholecystitis (principal); J96.00 Acute respiratory failure, unspecified whether with hypoxia or hypercapnia; N17.0 Acute kidney failure with tubular necrosis; I13.0 Hypertensive heart and chronic kidney disease with heart failure and stage 1 through stage 4 chronic kidney disease, or unspecified chronic kidney disease; I50.22 Chronic systolic (congestive) heart failure; I42.8 Other cardiomyopathies; I48.20 Chronic atrial fibrillation, unspecified; K40.20 Bilateral inguinal hernia, without obstruction or gangrene, not specified as recurrent; K52.9 Noninfective gastroenteritis and colitis, unspecified; K42.9 Umbilical hernia without obstruction or gangrene; J44.9 Chronic obstructive pulmonary disease, unspecified; N18.31 Chronic kidney disease, stage 3a; F03.90 Unspecified dementia, unspecified severity, without behavioral disturbance, psychotic disturbance, mood disturbance, and anxiety; I48.0 Paroxysmal atrial fibrillation; D75.89 Other specified diseases of blood and blood-forming organs; D63.8 Anemia in other chronic diseases classified elsewhere; E66.9 Obesity, unspecified; E78.5 Hyperlipidemia, unspecified; I07.1 Rheumatic tricuspid insufficiency; I27.20 Pulmonary hypertension, unspecified; Z80.42 Family history of malignant neoplasm of prostate; Z85.46 Personal history of malignant neoplasm of prostate; Z95.0 Presence of cardiac pacemaker; Z82.49 Family history of ischemic heart disease and other diseases of the circulatory system; Z86.73 Personal history of transient ischemic attack (TIA), and cerebral infarction without residual deficits; Z68.29 Body mass index [BMI] 29.0-29.9, adult
CPT/HCPCS: 36415; 74176; 74177; 76705; 80048; 80053; 81001; 83605; 83690; 83735; 84132; 84484; 85025; 85610; 85730; 87040; 87045; 87081; 87177; 87427; 87493; 93005; 97163; G0378; J0696; J2405; J3490

== ENCOUNTER 2023-06-01 10:37 | Emergency (ER) | payer MEDICARE, OTHER ==
[~2023-06-01] VITALS: Ht 172.7 cm; Wt 80.0 kg
[2023-06-01 11:18] VITALS: PULSE 78; RESP 42; O2SAT 96
[2023-06-01 11:25] LABS: Basophils # (auto) 0 10 ^3/uL (0-0.2); Basophils % (auto) 0.1 % (0.0-2.0); Eosinophils # (auto) 0 10 ^3/uL (0-0.8); Hematocrit 38.6 % (41.0-53.0); Lymphocytes # (auto) 1.3 10 ^3/uL (0.4-5.4); Lymphocytes % (auto) 5.8 % (10.0-50.0); Mean Corpuscular Hemoglobin 33.1 pg (28.0-32.0); Mean Corpuscular Hgb Conc. 33.6 g/dL (32.0-36.0); Mean Corpuscular Volume 98.4 fL (80.0-100.0); Monocytes # (auto) 1.3 10 ^3/uL (0-1.3); Monocytes % (auto) 5.8 % (0.0-12.0); Neutrophils # (auto) 20.3 10 ^3/uL (1.6-8.6); Neutrophils % (auto) 88.3 % (37.0-80.0); Nucleated Red Blood Cells % 0.1 %; Red Blood Cells 3.92 10^6/uL (4.5-5.90); Red Cell Distribution Width 14.7 % (11.8-14.3)
[2023-06-01 11:29] LABS: INR 1.04 (0.9-1.15); Prothrombin Time 10.9 sec (9.3-11.8)
[2023-06-01 11:38] LABS: Alanine Aminotransferase 37 U/L (7-40); Albumin 3.7 g/dL (3.2-4.8); Alkaline Phosphatase 118 U/L (46-116); Anion Gap 11 (5-15); Aspartate Aminotransferase 188 U/L (13-40); BUN/Creatinine Ratio 6.4 (10.0-20.0); Bilirubin, Total 0.9 mg/dL (0.2-1.0); Blood Urea Nitrogen 15 mg/dL (9-23); Calcium 8.9 mg/dL (8.7-10.4); Carbon Dioxide 18 mmol/L (20-30); Chloride 100 mmol/L (98-107); Glucose 141 mg/dL (74-106); Lipase 36 U/L (12-53); Potassium 5.3 mmol/L (3.5-5.1); Sodium 129 mmol/L (136-145); Total Protein 7.1 g/dL (5.7-8.2)
[2023-06-01] MEDS ORDERED: PIPERACILLIN-TAZO 4.5GM 100 ML IV ONE (12:30)
[2023-06-01] MEDS ORDERED: ASPirin 300 MG RECTAL SUPP PR ONE (12:30)
[2023-06-01] MEDS ORDERED: SODIUM CHLORIDE 0.9% 1,000 ML IV ONE (12:45)
[2023-06-01] MEDS ORDERED: FUROSEMIDE 40 MG/4 ML VIAL IV ONE (12:45)
[2023-06-01] MEDS ORDERED: CALCIUM GLUC 1,000mg/50ml-NS 50 ML IV ONE (13:00)
[2023-06-01] MEDS ORDERED: DEXTROSE (50%) 50ML SYRG IV ONE (13:00)
[2023-06-01] MEDS ORDERED: BACITRACIN TOP OINT 1 UD PKG TOP ONE (13:00)
[2023-06-01] MEDS ORDERED: ALBUTEROL SULF 2.5 MG/0.5ML(0.5%) NEB SOLN NEB ONE (13:00)
[2023-06-01] MEDS ORDERED: SODIUM BICARBONATE 8.4 % INJ 50ML VIAL IV ONE (13:00)
[2023-06-01] MEDS ORDERED: InsuLIN REG 1unit/0.01ml Soln (100units/ml) IV ONE (13:00)
[2023-06-01 14:51] LABS: Urine Bacteria NONE SEEN /hpf (None Seen); Urine Blood Negative /uL (Negative); Urine Clarity Clear (Clear); Urine Color Yellow (Yellow); Urine Protein, UAD TRACE (Negative); Urine Specific Gravity 1.014 (1.001-1.035); Urine Urobilinogen Normal (Negative); Urine WBC <1 /hpf (0 - 3)
[2023-06-01 17:37] VITALS: BP 107/60; PULSE 75; RESP 24; TEMP 97.3; O2SAT 98
== END 2023-06-01 18:17 | disposition short-term general hospital (02) ==
LOC: ER 10:37 → EDBD 10:37 → ER 18:17
DX: T79.6XXA Traumatic ischemia of muscle, initial encounter (principal); R41.82 Altered mental status, unspecified; I11.0 Hypertensive heart disease with heart failure; I50.9 Heart failure, unspecified; E87.5 Hyperkalemia; K81.1 Chronic cholecystitis; E87.1 Hypo-osmolality and hyponatremia; J44.9 Chronic obstructive pulmonary disease, unspecified; E78.5 Hyperlipidemia, unspecified; G93.41 Metabolic encephalopathy; I63.9 Cerebral infarction, unspecified; R74.8 Abnormal levels of other serum enzymes; E11.22 Type 2 diabetes mellitus with diabetic chronic kidney disease; I12.9 Hypertensive chronic kidney disease with stage 1 through stage 4 chronic kidney disease, or unspecified chronic kidney disease; N18.9 Chronic kidney disease, unspecified; X58.XXXA Exposure to other specified factors, initial encounter; Y93.89 Activity, other specified; Y92.89 Other specified places as the place of occurrence of the external cause; Y99.8 Other external cause status
CPT/HCPCS: 36415; 70450; 71045; 80053; 81001; 82140; 82550; 83690; 83880; 84484; 85025; 85610; 93005; 94640; 96365; 96366; 96368; 96375; 99291; J1815; J1940; J2543; J7030; J7042